=== PATIENT | female | born 1945 | race Caucasian/White ===

== ENCOUNTER 2019-04-29 18:10 | Emergency (ER) | payer MEDICARE, OTHER ==
[~2019-04-29] VITALS: Ht 167.6 cm; Wt 97.2 kg
[~2019-04-29 18:10] MED LIST: ACYC200C PO; ALBU18HF2 IH; ALPR1TAB2 PO; ASPI-611 PO; BACL10TA PO; FURO20TA4 PO; GEMF600T89 PO; GLIP5TAB13 PO; HYDR-4383 PO; LEVO150T8 PO; LOSA50TA64 PO; LYR75C PO; MEDR2.5T PO; METF-316 PO; NITR0.3T SL; NPH,100V SQ; PANT40TA4 PO; POTA8TAB8 PO; VENL37.55 PO
[2019-04-29 18:30] VITALS: BP 139/84
[2019-04-29] MEDS ORDERED: dexamethasone 4mg tablet PO ONE (19:15)
[2019-04-29] MEDS ORDERED: diphenhydrAMINE 25mg capsule PO ONE (19:15)
[2019-04-29] MEDS ORDERED: famotidine 20mg tablet PO ONE (19:15)
[2019-04-29] MEDS ORDERED: DIPH25CA83 PO (19:17)
[2019-04-29] MEDS ORDERED: TRIA15CR61 TOP (19:17)
[2019-04-29] MEDS ORDERED: FAMO-128 PO (19:17)
== END 2019-04-29 19:29 | disposition home or self-care (01) ==
LOC: ER 18:11
DX: L23.7 Allergic contact dermatitis due to plants, except food (principal); E11.9 Type 2 diabetes mellitus without complications; H57.89 Other specified disorders of eye and adnexa; I25.10 Atherosclerotic heart disease of native coronary artery without angina pectoris; E78.00 Pure hypercholesterolemia, unspecified; I10 Essential (primary) hypertension; I25.2 Old myocardial infarction; Z88.1 Allergy status to other antibiotic agents; Z88.8 Allergy status to other drugs, medicaments and biological substances; Z79.899 Other long term (current) drug therapy; Z79.82 Long term (current) use of aspirin; Z95.5 Presence of coronary angioplasty implant and graft
CPT/HCPCS: 99284; J8540; Q0163

== ENCOUNTER 2019-12-17 17:45 | Emergency (ER) | payer MEDICARE, OTHER ==
[~2019-12-17] VITALS: Ht 167.6 cm; Wt 360.0 kg
[~2019-12-17 17:45] MED LIST changes: +DIPH25CA83 PO; +FAMO-128 PO
--- NOTE | 2019-12-17 18:20 | NUR ---
relieving RN for break, pt to xray
[2019-12-17] MEDS ORDERED: HYDR-3965 PO (19:03)
[2019-12-17 19:41] VITALS: BP 128/48
== END 2019-12-17 19:41 | disposition home or self-care (01) ==
LOC: ER 17:46
DX: M25.551 Pain in right hip (principal); M25.562 Pain in left knee; M79.662 Pain in left lower leg; I25.10 Atherosclerotic heart disease of native coronary artery without angina pectoris; E78.00 Pure hypercholesterolemia, unspecified; I10 Essential (primary) hypertension; I25.2 Old myocardial infarction; E11.9 Type 2 diabetes mellitus without complications; Z98.890 Other specified postprocedural states; Z60.2 Problems related to living alone; Z88.1 Allergy status to other antibiotic agents; Z88.6 Allergy status to analgesic agent; Z79.82 Long term (current) use of aspirin; Z79.899 Other long term (current) drug therapy; W19.XXXA Unspecified fall, initial encounter; Y93.89 Activity, other specified; Y92.096 Garden or yard of other non-institutional residence as the place of occurrence of the external cause
CPT/HCPCS: 72100; 73502; 73552; 73590; 99284

== ENCOUNTER 2021-07-13 15:01 | Emergency (ER) | payer MEDICARE, OTHER ==
[~2021-07-13] VITALS: Ht 170.2 cm; Wt 118.0 kg
[~2021-07-13 15:01] MED LIST changes: -ACYC200C PO; -PANT40TA4 PO; +PANT40TA54 PO; +ZOV200C PO
[2021-07-13 15:49] LABS: BASOPHILS % (AUTO) 0.3 % (0-1); EOSINOPHILS # (AUTO) 0.2 X10'3 (0-0.9); EOSINOPHILS % (AUTO) 2.4 % (0-6); HEMATOCRIT 35.5 % (35.0-45.0); HEMOGLOBIN 11.2 g/dl (12.0-16.0); LYMPHOCYTES # (AUTO) 0.8 X10'3 (1.1-4.8); LYMPHOCYTES % (AUTO) 8.7 % (21-51); MEAN CORPUSCULAR HEMOGLOBIN 22.9 PG (27.0-31.0); MEAN CORPUSCULAR HGB CONC 31.5 g/dL (33.0-36.5); MEAN CORPUSCULAR VOLUME 72.7 FL (78-98); MEAN PLATELET VOLUME 7.2 FL (7.4-10.4); MONOCYTES # (AUTO) 0.6 X10'3 (0-0.9); MONOCYTES % (AUTO) 7.2 % (2-12); NEUTROPHILS # (AUTO) 7.2 X10'3 (1.8-7.7); NEUTROPHILS % (AUTO) 81.4 % (42-75); PLATELET COUNT 356 X10'3 (140-440); RED BLOOD COUNT 4.89 X10'6 (4.20-5.60); RED CELL DISTRIBUTION WIDTH 20.2 % (11.5-14.5); WHITE BLOOD COUNT 8.8 X10'3 (4.5-11.0)
[2021-07-13 16:06] LABS: ALANINE AMINOTRANSFERASE 24 U/L (12-78); ALBUMIN 3.2 G/DL (3.4-5.0); ALBUMIN/GLOBULIN RATIO 0.9 (1.1-1.5); ALKALINE PHOSPHATASE 105 IU/L (46-116); ANION GAP 8 (8-16); ASPARTATE AMINO TRANSFERASE 12 U/L (10-37); BILIRUBIN,TOTAL 0.5 MG/DL (0.1-1.0); BLOOD UREA NITROGEN 17 MG/DL (7-18); BUN/CREATININE RATIO 17.7 (6.6-38.0); CALCIUM 8.6 MG/DL (8.5-10.1); CHLORIDE 105 MMOL/L (99-107); CREATININE 0.96 MG/DL (0.40-0.90); GLUCOSE 222 MG/DL (70-104); POTASSIUM 3.9 MMOL/L (3.5-5.1); SODIUM 142 MMOL/L (135-145); TOTAL CARBON DIOXIDE 29.5 MMOL/L (24-32); TOTAL PROTEIN 6.9 G/DL (6.4-8.2); eGFR 57 ML/MIN
[2021-07-13 16:12] LABS: MICROCYTOSIS 1+; PLATELET ESTIMATE NORMAL
[2021-07-13 16:13] LABS: ANISOCYTOSIS 3+; ELLIPTOCYTES 1+
[2021-07-13 16:14] LABS: POLYCHROMASIA FEW
[2021-07-13 16:15] LABS: BURR CELLS FEW; HYPOCHROMASIA 1+
[2021-07-13 17:09] VITALS: BP 111/85
[2021-07-13 17:51] LABS: D-DIMER 0.91 MG/L FEU (0-0.50)
[2021-07-13] MEDS ORDERED: iohexol 350MG/ML 100ml bottle IV ONE (18:03)
[2021-07-13] MEDS ORDERED: LISI10TA27 PO (18:53)
== END 2021-07-13 19:22 | disposition home or self-care (01) ==
LOC: ER 15:02
DX: R06.02 Shortness of breath (principal); R09.89 Other specified symptoms and signs involving the circulatory and respiratory systems; I25.10 Atherosclerotic heart disease of native coronary artery without angina pectoris; E78.00 Pure hypercholesterolemia, unspecified; I10 Essential (primary) hypertension; I25.2 Old myocardial infarction; J44.9 Chronic obstructive pulmonary disease, unspecified; E11.9 Type 2 diabetes mellitus without complications; Z98.890 Other specified postprocedural states; Z60.2 Problems related to living alone; Z79.2 Long term (current) use of antibiotics; Z79.82 Long term (current) use of aspirin; Z79.899 Other long term (current) drug therapy
CPT/HCPCS: 36415; 71045; 71275; 80053; 82948; 83880; 84484; 85008; 85025; 85379; 93005; 99285; Q9967

== ENCOUNTER 2021-10-18 07:16 | Inpatient (IN) | payer MEDICARE, OTHER ==
[~2021-10-18] VITALS: Ht 172.7 cm; Wt 114.2 kg
[~2021-10-18 07:16] MED LIST changes: +LISI10TA27 PO
[2021-10-18] MEDS ORDERED: furosemide 40mg/4ml inj IV ONE (08:50)
[2021-10-18 09:15] LABS: BASOPHILS % (AUTO) 0.5 % (0-1); EOSINOPHILS # (AUTO) 0.1 X10'3 (0-0.9); EOSINOPHILS % (AUTO) 1.3 % (0-6); LYMPHOCYTES # (AUTO) 0.7 X10'3 (1.1-4.8); LYMPHOCYTES % (AUTO) 8.5 % (21-51); MEAN PLATELET VOLUME 7.3 FL (7.4-10.4); MONOCYTES % (AUTO) 11.7 % (2-12); NEUTROPHILS # (AUTO) 6.5 X10'3 (1.8-7.7); PLATELET COUNT 335 X10'3 (140-440); RED CELL DISTRIBUTION WIDTH 20.5 % (11.5-14.5); WHITE BLOOD COUNT 8.4 X10'3 (4.5-11.0)
[2021-10-18 09:19] LABS: ALANINE AMINOTRANSFERASE 17 U/L (12-78); ALBUMIN 3.2 G/DL (3.4-5.0); ALBUMIN/GLOBULIN RATIO 0.9 (1.1-1.5); ALKALINE PHOSPHATASE 83 IU/L (46-116); ANION GAP 3 (8-16); ASPARTATE AMINO TRANSFERASE 15 U/L (10-37); BILIRUBIN,TOTAL 0.6 MG/DL (0.1-1.0); BLOOD UREA NITROGEN 19 MG/DL (7-18); BUN/CREATININE RATIO 19.4 (6.6-38.0); CHLORIDE 101 MMOL/L (99-107); CREATININE 0.98 MG/DL (0.40-0.90); GLUCOSE 94 MG/DL (70-104); POTASSIUM 4.2 MMOL/L (3.5-5.1); SODIUM 142 MMOL/L (135-145); TOTAL CARBON DIOXIDE 38.4 MMOL/L (24-32); TOTAL PROTEIN 6.9 G/DL (6.4-8.2); eGFR 56 ML/MIN
[2021-10-18 09:27] LABS: MAGNESIUM 2.2 MG/DL (1.5-2.4)
[2021-10-18 09:51] LABS: HEMATOCRIT 36.7 % (35.0-45.0); HEMOGLOBIN 11.7 g/dl (12.0-16.0); RED BLOOD COUNT 5.49 X10'6 (4.20-5.60)
[2021-10-18 09:52] LABS: MEAN CORPUSCULAR HEMOGLOBIN 21.2 PG (27.0-31.0); MEAN CORPUSCULAR HGB CONC 31.8 g/dL (33.0-36.5); MEAN CORPUSCULAR VOLUME 66.8 FL (78-98)
[2021-10-18] MEDS ORDERED: magnesium Cl slow-release 64mg tablet PO PRN (11:15)
[2021-10-18] MEDS ORDERED: metoclopramide 5 mg/ml inj IV PRN (11:15)
[2021-10-18] MEDS ORDERED: magnesium 4gm in 100ml NS 100 ML IV PRN (11:15)
[2021-10-18] MEDS ORDERED: ondansetron 4mg rapidly disintigrating tab PO PRN (11:15)
[2021-10-18] MEDS ORDERED: HYDROcodone/acetaminophen 5mg/325mg tablet PO PRN (11:15)
[2021-10-18] MEDS ORDERED: potassium Cl 20 mEq SR tablet PO PRN ×2 (11:15)
[2021-10-18] MEDS ORDERED: acetaminophen 325mg tablet PO PRN (11:15)
[2021-10-18] MEDS ORDERED: acetaminophen 650mg rectal suppository RC PRN (11:15)
[2021-10-18] MEDS ORDERED: potassium CL 10mEq/100ml bag 100 ML IV PRN (11:15)
[2021-10-18] MEDS ORDERED: magnesium hydroxide 30ml (MOM) UD suspension PO PRN (11:15)
[2021-10-18] MEDS ORDERED: bisacodyl 10mg suppository rectal RC PRN (11:15)
[2021-10-18] MEDS ORDERED: ondansetron/PF 4mg/2ml inj IV PRN (11:15)
[2021-10-18] MEDS ORDERED: ipratropium/albuterol 3ml nebule NEB PRN (11:15)
[2021-10-18] MEDS ORDERED: magnesium 2GM in 50ml NS 50 ML IV PRN (11:15)
[2021-10-18] MEDS ORDERED: mag hydrox/Alum hydrox/simeth 30ml oral suspension PO PRN (11:15)
[2021-10-18] MEDS ORDERED: PERFLUTREN PROTEIN-A MICROSPHR (Optison) 0.22 MG/ML 3ML VIAL IV ONE (11:15)
[2021-10-18 11:36] LABS: ANISOCYTOSIS 3+; MICROCYTOSIS 2+; PLATELET ESTIMATE NORMAL
[2021-10-18 11:41] LABS: ELLIPTOCYTES FEW; HYPOCHROMASIA 2+
--- NOTE | 2021-10-18 13:03 | NUR ---
DR PETERSON AT BEDSIDE.
[2021-10-18 13:21] LABS: CLARITY,URINE CLEAR (Clear); COLOR,URINE YELLOW (Yellow); GLUCOSE, URINE 100 mg/dl (Neg); KETONES,URINE TRACE mg/dl (Neg); LEUKOCYTE ESTERASE ,URINE NEGATIVE (Neg); NITRITES, URINE NEGATIVE (Neg); OCCULT BLOOD,URINE NEGATIVE (Neg); PROTEIN,URINE TRACE mg/dl (Neg)
[2021-10-18 13:22] LABS: UA COLLECTION TYPE CLN CATCH MIDSTREAM
[2021-10-18] MEDS ORDERED: dextrose 50%-water 50ml dispensing syringe IV ONE (13:24)
[2021-10-18 13:26] LABS: MUCUS STRANDS MANY /LPF (Neg)
[2021-10-18 13:27] LABS: SQUAMOUS EPITHELIAL CELL,UR FEW /LPF (FEW)
--- NOTE | 2021-10-18 13:27 | NUR ---
PT BLD SUGAR WAS 18 AND 21 PER MARCIA CHAVARRIA .PT C/O DIAPHORISIS AND FEELING WEAK AND TIRED ,MARCIA CHAVARRIA CHECKED THE B.S ,DR PETERSON CAME AT BEDSIDE ORDER TO GIVE 50 %DEXTROSE FOR LOW BP AND ALSO INSTRUCTED TO FEED THE PATIENT .DEXTROSE 50 %ADMIN AND TRAY PROVIDED ,PT AOX4 EATING HER FOOD.
[2021-10-18 13:30] LABS: HYALINE CASTS 0-3 /LPF (NEGATIVE)
[2021-10-18 13:34] LABS: TRANSITIONAL EPI CELLS,URINE MODERATE /HPF
[2021-10-18 13:35] LABS: RBC,URINE 0-2 /HPF (0-2)
[2021-10-18 13:40] LABS: BACTERIA,URINE FEW /HPF (Neg); WBC,URINE 0-4 /HPF (0-4)
[2021-10-18] MEDS ORDERED: LEVO175C2 PO (13:44)
[2021-10-18] MEDS ORDERED: POTA8CAP20 PO (13:44)
[2021-10-18] MEDS ORDERED: NAPR-56 PO (13:44)
[2021-10-18] MEDS ORDERED: ATOR40TA PO (13:44)
[2021-10-18] MEDS ORDERED: VENL37.55 PO (13:44)
--- NOTE | 2021-10-18 15:32 | NUR ---
pet technologist at bedside.
[2021-10-18 16:39] VITALS: BP 148/95
--- NOTE | 2021-10-18 17:00 | NUR ---
IR HAS TAKEN 1200 ML OF PLEURAL FLUID OUT FROM RGT LUNG.
[2021-10-18] MEDS: docusate sod 100mg capsule PO SCH (20:00)
[2021-10-18] MEDS: K and/or MAG REPLACEMENT MC SCH (20:00)
[2021-10-18] MEDS: furosemide 40mg/4ml inj IV SCH (20:31)
[2021-10-18] MEDS ORDERED: temazepam 15mg capsule PO PRN (21:00)
--- NOTE | 2021-10-19 01:15 | NUR ---
Patient in room PCU 3013. I have received report from Urban CHAVARRIA and had the opportunity to ask questions and assume patient care.
[2021-10-19 01:34] LABS: BASOPHILS % (AUTO) 0.4 % (0-1); EOSINOPHILS # (AUTO) 0.2 X10'3 (0-0.9); EOSINOPHILS % (AUTO) 2.3 % (0-6); LYMPHOCYTES # (AUTO) 0.8 X10'3 (1.1-4.8); LYMPHOCYTES % (AUTO) 8.5 % (21-51); MEAN PLATELET VOLUME 7.3 FL (7.4-10.4); MONOCYTES % (AUTO) 11.3 % (2-12); NEUTROPHILS # (AUTO) 7.1 X10'3 (1.8-7.7); NEUTROPHILS % (AUTO) 77.5 % (42-75); PLATELET COUNT 335 X10'3 (140-440); WHITE BLOOD COUNT 9.2 X10'3 (4.5-11.0)
[2021-10-19 01:42] LABS: ALANINE AMINOTRANSFERASE 15 U/L (12-78); ALBUMIN/GLOBULIN RATIO 0.8 (1.1-1.5); ALKALINE PHOSPHATASE 80 IU/L (46-116); ANION GAP 3 (8-16); ASPARTATE AMINO TRANSFERASE 21 U/L (10-37); BILIRUBIN,TOTAL 0.5 MG/DL (0.1-1.0); BLOOD UREA NITROGEN 19 MG/DL (7-18); BUN/CREATININE RATIO 17.9 (6.6-38.0); CALCIUM 8.9 MG/DL (8.5-10.1); CHLORIDE 100 MMOL/L (99-107); CHOL/HDL RATIO 2.6 (0.00-4.99); CHOLESTEROL 107 MG/DL (0-200); CREATININE 1.06 MG/DL (0.40-0.90); GLUCOSE 143 MG/DL (70-104); HDL CHOLESTEROL 41 MG/DL (35-60); LDL CHOLESTEROL 53 MG/DL (50-100); MAGNESIUM 2.2 MG/DL (1.5-2.4); POTASSIUM 4.3 MMOL/L (3.5-5.1); SODIUM 142 MMOL/L (135-145); TOTAL CARBON DIOXIDE 39.5 MMOL/L (24-32); TOTAL PROTEIN 6.6 G/DL (6.4-8.2); TRIGLYCERIDES 57 MG/DL (20-135); eGFR 51 ML/MIN
[2021-10-19 02:00] VITALS: BP 115/55
[2021-10-19 02:25] LABS: HEMATOCRIT 33.3 % (35.0-45.0); HEMOGLOBIN 10.6 g/dl (12.0-16.0); MEAN CORPUSCULAR HEMOGLOBIN 21.3 PG (27.0-31.0); MEAN CORPUSCULAR HGB CONC 31.9 g/dL (33.0-36.5); MEAN CORPUSCULAR VOLUME 66.8 FL (78-98); RED BLOOD COUNT 4.99 X10'6 (4.20-5.60)
[2021-10-19 02:55] LABS: ANISOCYTOSIS 3+; MICROCYTOSIS 2+; PLATELET ESTIMATE NORMAL; POLYCHROMASIA FEW
[2021-10-19 02:56] LABS: HYPOCHROMASIA 1+
[2021-10-19 02:58] LABS: ELLIPTOCYTES 1+
[2021-10-19] MEDS: HYDROcodone/acetaminophen 10/325mg tab PO PRN (04:09)
[2021-10-19 06:00] VITALS: BP 121/67
--- NOTE | 2021-10-19 06:29 | NUR ---
Patient in room PCU 3013. I have received report from Narcisa CHAVARRIA and had the opportunity to ask questions and assume patient care.
[2021-10-19] MEDS: K and/or MAG REPLACEMENT MC SCH (08:00)
[2021-10-19] MEDS: pantoprazole 40mg Tablet.DR PO SCH (08:26)
[2021-10-19] MEDS: atorvastatin 20mg tablet PO SCH (08:26)
[2021-10-19] MEDS: lisinopril 10 MG tablet PO SCH (08:27)
[2021-10-19] MEDS: potassium chloride 8mEq ER tablet PO SCH (08:27)
[2021-10-19] MEDS: furosemide 40mg/4ml inj IV SCH ×2 (08:28→19:49)
[2021-10-19] MEDS: levoTHYROXINE 175mcg tablet PO SCH (08:28)
[2021-10-19] MEDS: venlafaxine XR 37.5mg cap (Q24H) PO SCH (08:28)
[2021-10-19] MEDS: docusate sod 100mg capsule PO SCH ×2 (08:29→19:52)
[2021-10-19] MEDS: enoxaparin 40mg/0.4ml syringe SUBCUT SCH (08:34)
[2021-10-19] MEDS ORDERED: dextrose ORAL solution 15 GM/59 ML bottle PO PRN ×4 (10:15→11:00)
[2021-10-19] MEDS ORDERED: dextrose 50%-water 50ml dispensing syringe IV PRN ×3 (10:15→11:00)
[2021-10-19] MEDS ORDERED: MESSAGE TO PHARMACY PO ONE ×2 (10:15→11:00)
[2021-10-19] MEDS ORDERED: glucagon, human recombinant 1mg kit SUBCUT PRN ×2 (10:15→11:00)
[2021-10-19 11:00] VITALS: BP 137/75
[2021-10-19] MEDS ORDERED: insulin Lispro (HumaLOG) vial - multi-dose SQ SCH (11:00)
[2021-10-19] MEDS: insulin Lispro (HumaLOG) vial - multi-dose SQ SCH ×2 (13:09→19:46)
--- NOTE | 2021-10-19 13:35 | NUR ---
Noted pt with h/o DM, current A1c is 9.0% which is relatively stable from A1c hx per EMR. Pt seen at bedside on second attempt, only able to provide written DM education as pt had to discontinue visit d/t needing to have a BM. [facility] contact information provided and pt encouraged to reach out for questions. Will remain available. Addendum: 10/19/21 at [address] Amended: Links added.
[2021-10-19 15:00] VITALS: BP 112/53
[2021-10-19] MEDS: acetaminophen 325mg tablet PO PRN (16:35)
[2021-10-19 18:00] VITALS: BP 143/87
--- NOTE | 2021-10-19 18:36 | NUR ---
Problems reprioritized. Patient report given to Oraila CHAVARRIA, questions answered & plan of care reviewed with Oralia CHAVARRIA.
--- NOTE | 2021-10-19 18:56 | NUR ---
Patient in room PCU 3013. I have received report from Awilda CHAVARRIA and had the opportunity to ask questions and assume patient care.
[2021-10-19] MEDS: guaiFENesin ER 600mg tablet PO SCH (19:51)
[2021-10-19] MEDS: calcium polycarbophil 625mg tablet PO SCH (19:51)
[2021-10-19] MEDS ORDERED: insulin glargine (Lantus) pen - multi-dose SQ SCH (21:00)
[2021-10-19 22:00] VITALS: BP 138/77
[2021-10-19] MEDS: insulin glargine (Lantus) pen - multi-dose SQ SCH (22:08)
[2021-10-19] MEDS: ALPRAZolam 0.5mg tablet PO PRN (22:13)
[2021-10-20 02:00] VITALS: BP 147/85
[2021-10-20 06:00] VITALS: BP 129/79
--- NOTE | 2021-10-20 06:08 | NUR ---
Problems reprioritized. Patient report given, questions answered & plan of care reviewed with Awilda CHAVARRIA.
--- NOTE | 2021-10-20 06:22 | NUR ---
Patient in room PCU 3008. I have received report from Oralia CHAVARRIA and had the opportunity to ask questions and assume patient care.
[2021-10-20] MEDS: docusate sod 100mg capsule PO SCH ×2 (06:26→21:39)
[2021-10-20] MEDS: levoTHYROXINE 175mcg tablet PO SCH (07:03)
[2021-10-20] MEDS: salt irrigation nasal spray 45 ML SPRAY NS PRN ×2 (07:03→21:38)
[2021-10-20] MEDS: venlafaxine XR 37.5mg cap (Q24H) PO SCH (07:05)
[2021-10-20] MEDS: lisinopril 10 MG tablet PO SCH (07:05)
[2021-10-20] MEDS: calcium polycarbophil 625mg tablet PO SCH ×2 (07:06→21:36)
[2021-10-20] MEDS: atorvastatin 20mg tablet PO SCH (07:06)
[2021-10-20] MEDS: pantoprazole 40mg Tablet.DR PO SCH (07:06)
[2021-10-20] MEDS: guaiFENesin ER 600mg tablet PO SCH ×2 (07:06→21:37)
[2021-10-20] MEDS: potassium chloride 8mEq ER tablet PO SCH (07:07)
[2021-10-20] MEDS: furosemide 40mg/4ml inj IV SCH ×2 (07:07→21:44)
[2021-10-20] MEDS: enoxaparin 40mg/0.4ml syringe SUBCUT SCH (07:07)
[2021-10-20] MEDS: acetaminophen 325mg tablet PO PRN (07:11)
[2021-10-20] MEDS: K and/or MAG REPLACEMENT MC SCH ×2 (08:00→20:00)
[2021-10-20 08:24] LABS: BASOPHILS % (AUTO) 0.4 % (0-1); EOSINOPHILS # (AUTO) 0.3 X10'3 (0-0.9); EOSINOPHILS % (AUTO) 3.7 % (0-6); LYMPHOCYTES # (AUTO) 0.8 X10'3 (1.1-4.8); LYMPHOCYTES % (AUTO) 10.9 % (21-51); MEAN PLATELET VOLUME 7.4 FL (7.4-10.4); MONOCYTES # (AUTO) 0.8 X10'3 (0-0.9); MONOCYTES % (AUTO) 11.7 % (2-12); NEUTROPHILS # (AUTO) 5.1 X10'3 (1.8-7.7); NEUTROPHILS % (AUTO) 73.3 % (42-75); PLATELET COUNT 321 X10'3 (140-440); WHITE BLOOD COUNT 6.9 X10'3 (4.5-11.0)
[2021-10-20 08:28] LABS: ALANINE AMINOTRANSFERASE 11 U/L (12-78); ALBUMIN 2.8 G/DL (3.4-5.0); ALBUMIN/GLOBULIN RATIO 0.8 (1.1-1.5); ALKALINE PHOSPHATASE 69 IU/L (46-116); ANION GAP 3 (8-16); ASPARTATE AMINO TRANSFERASE 20 U/L (10-37); BILIRUBIN,TOTAL 0.8 MG/DL (0.1-1.0); BLOOD UREA NITROGEN 16 MG/DL (7-18); BUN/CREATININE RATIO 16.7 (6.6-38.0); CALCIUM 8.6 MG/DL (8.5-10.1); CHLORIDE 100 MMOL/L (99-107); CREATININE 0.96 MG/DL (0.40-0.90); GLUCOSE 163 MG/DL (70-104); PHOSPHORUS 4.8 MG/DL (2.3-4.5); POTASSIUM 3.5 MMOL/L (3.5-5.1); SODIUM 142 MMOL/L (135-145); TOTAL CARBON DIOXIDE 39.2 MMOL/L (24-32); TOTAL PROTEIN 6.2 G/DL (6.4-8.2); eGFR 57 ML/MIN
[2021-10-20 08:43] LABS: HEMATOCRIT 35.5 % (35.0-45.0); HEMOGLOBIN 11.1 g/dl (12.0-16.0); MEAN CORPUSCULAR HEMOGLOBIN 20.9 PG (27.0-31.0); MEAN CORPUSCULAR HGB CONC 31.2 g/dL (33.0-36.5); MEAN CORPUSCULAR VOLUME 66.8 FL (78-98); RED BLOOD COUNT 5.31 X10'6 (4.20-5.60); RED CELL DISTRIBUTION WIDTH 20.1 % (11.5-14.5)
[2021-10-20 08:49] LABS: % IRON SATURATION 7 % (11-46); IRON 29 UG/DL (49-151); TOTAL IRON BINDING CAPACITY 390 UG/DL (259-388)
[2021-10-20 11:00] VITALS: BP 117/68
[2021-10-20] MEDS: insulin Lispro (HumaLOG) vial - multi-dose SQ SCH ×2 (13:19→19:25)
[2021-10-20] MEDS ORDERED: levoFLOXACIN 500mg tablet PO ONE (14:25)
[2021-10-20 15:00] VITALS: BP 124/73
--- NOTE | 2021-10-20 16:19 | NUR ---
Wound Care Wound care done. Per doctor Delmyo, no need to order topical antibiotic. Awilda Click PCU
[2021-10-20 18:00] VITALS: BP 92/59
--- NOTE | 2021-10-20 18:32 | NUR ---
Problems reprioritized. Patient report given to Marty RN, questions answered & plan of care reviewed with Marty RN.
--- NOTE | 2021-10-20 18:35 | NUR ---
Patient in room PCU 3013. I have received report from ATILIO CHAVARRIA and had the opportunity to ask questions and assume patient care.
[2021-10-20] MEDS: ALPRAZolam 0.5mg tablet PO PRN (21:37)
[2021-10-20] MEDS: insulin glargine (Lantus) pen - multi-dose SQ SCH (21:49)
[2021-10-20 22:00] VITALS: BP 137/73
[2021-10-21 02:00] VITALS: BP 121/70
--- NOTE | 2021-10-21 06:23 | NUR ---
Problems reprioritized. Patient report given, questions answered & plan of care reviewed with HILTON CHAVARRIA.
--- NOTE | 2021-10-21 06:57 | NUR ---
Patient in room PCU 3013. I have received report from Stefani CHAVARRIA and had the opportunity to ask questions and assume patient care.
[2021-10-21 07:00] VITALS: BP 131/76
[2021-10-21 07:07] LABS: BASOPHILS # (AUTO) 0.1 X10'3 (0-0.2); BASOPHILS % (AUTO) 0.9 % (0-1); EOSINOPHILS # (AUTO) 0.3 X10'3 (0-0.9); EOSINOPHILS % (AUTO) 4.1 % (0-6); HEMOGLOBIN 10.7 g/dl (12.0-16.0); LYMPHOCYTES # (AUTO) 0.9 X10'3 (1.1-4.8); LYMPHOCYTES % (AUTO) 12.2 % (21-51); MEAN PLATELET VOLUME 7.3 FL (7.4-10.4); MONOCYTES # (AUTO) 0.9 X10'3 (0-0.9); MONOCYTES % (AUTO) 12.9 % (2-12); NEUTROPHILS % (AUTO) 69.9 % (42-75); PLATELET COUNT 299 X10'3 (140-440); WHITE BLOOD COUNT 7.1 X10'3 (4.5-11.0)
[2021-10-21 07:21] LABS: ALANINE AMINOTRANSFERASE 7 U/L (12-78); ALBUMIN 2.6 G/DL (3.4-5.0); ALBUMIN/GLOBULIN RATIO 0.8 (1.1-1.5); ALKALINE PHOSPHATASE 63 IU/L (46-116); ANION GAP 1 (8-16); ASPARTATE AMINO TRANSFERASE 14 U/L (10-37); BILIRUBIN,TOTAL 0.6 MG/DL (0.1-1.0); BLOOD UREA NITROGEN 18 MG/DL (7-18); BUN/CREATININE RATIO 17.5 (6.6-38.0); CALCIUM 8.6 MG/DL (8.5-10.1); CHLORIDE 102 MMOL/L (99-107); CREATININE 1.03 MG/DL (0.40-0.90); GLUCOSE 155 MG/DL (70-104); MAGNESIUM 2.1 MG/DL (1.5-2.4); PHOSPHORUS 4.4 MG/DL (2.3-4.5); POTASSIUM 3.6 MMOL/L (3.5-5.1); SODIUM 142 MMOL/L (135-145); TOTAL CARBON DIOXIDE 39.5 MMOL/L (24-32); eGFR 53 ML/MIN
[2021-10-21] MEDS: K and/or MAG REPLACEMENT MC SCH ×2 (08:00→20:00)
[2021-10-21 08:01] LABS: HEMATOCRIT 34.7 % (35.0-45.0); RED BLOOD COUNT 5.13 X10'6 (4.20-5.60)
[2021-10-21 08:02] LABS: MEAN CORPUSCULAR HEMOGLOBIN 20.9 PG (27.0-31.0); MEAN CORPUSCULAR HGB CONC 30.8 g/dL (33.0-36.5); MEAN CORPUSCULAR VOLUME 67.8 FL (78-98)
[2021-10-21] MEDS: enoxaparin 40mg/0.4ml syringe SUBCUT SCH (08:21)
[2021-10-21] MEDS: calcium polycarbophil 625mg tablet PO SCH ×2 (08:21→20:01)
[2021-10-21] MEDS: pantoprazole 40mg Tablet.DR PO SCH (08:21)
[2021-10-21] MEDS: levoTHYROXINE 175mcg tablet PO SCH (08:21)
[2021-10-21] MEDS: potassium chloride 8mEq ER tablet PO SCH (08:22)
[2021-10-21] MEDS: docusate sod 100mg capsule PO SCH ×2 (08:22→20:01)
[2021-10-21] MEDS: lisinopril 10 MG tablet PO SCH (08:22)
[2021-10-21] MEDS: atorvastatin 20mg tablet PO SCH (08:22)
[2021-10-21] MEDS: venlafaxine XR 37.5mg cap (Q24H) PO SCH (08:23)
[2021-10-21] MEDS: guaiFENesin ER 600mg tablet PO SCH ×2 (08:23→20:01)
[2021-10-21] MEDS: ferrous sulfate 325mg tablet PO SCH ×3 (08:23→17:27)
[2021-10-21] MEDS: furosemide 40mg/4ml inj IV SCH ×2 (08:23→19:43)
[2021-10-21] MEDS: insulin Lispro (HumaLOG) vial - multi-dose SQ SCH ×3 (08:36→20:10)
[2021-10-21 09:25] LABS: ANISOCYTOSIS 2+; HYPOCHROMASIA 2+; MICROCYTOSIS 2+; PLATELET ESTIMATE NORMAL
[2021-10-21 09:26] LABS: ELLIPTOCYTES 1+
[2021-10-21 09:27] LABS: SCHISTOCYTES FEW
[2021-10-21 11:00] VITALS: BP 115/65
[2021-10-21] MEDS: salt irrigation nasal spray 45 ML SPRAY NS PRN ×3 (11:02→20:01)
[2021-10-21] MEDS: levoFLOXACIN 500mg tablet PO SCH (11:02)
[2021-10-21] MEDS: acetaminophen 325mg tablet PO PRN ×2 (12:14→23:25)
[2021-10-21 15:00] VITALS: BP 122/79
[2021-10-21 15:40] LABS: ABG BASE EXCESS 13.4 mmol/L (-2.0-2.0); ABG HCO3 39.1 mmol/L (22.0-26.0); ABG OXYGEN SATURATION 90.6 % (94-97); ABG PCO2 (T) 54.9 mmHg (32.0-45.0); ABG PO2 (T) 57.8 mmHg (75.0-100.0); ALLEN'S TEST POSITIVE; FLOW 6 L/min; FMetHb 0.3 % (0.0-1.5); FO2Hb 89.4 % (94-97); TOTAL HEMOGLOBIN 11.7 G/dl (12.0-16.0)
[2021-10-21 18:00] VITALS: BP 159/94
--- NOTE | 2021-10-21 18:23 | NUR ---
Problems reprioritized. Patient report given, questions answered & plan of care reviewed with Stefani CHAVARRIA.
--- NOTE | 2021-10-21 18:35 | NUR ---
Patient in room PCU 3013. I have received report from BRENNAN CHAVARRIA and had the opportunity to ask questions and assume patient care.
[2021-10-21] MEDS: lactobacillus rhamnosus 10,000 MMU CELLS/CAPSULE PO SCH (20:01)
[2021-10-21 22:00] VITALS: BP 128/77
[2021-10-21] MEDS: ALPRAZolam 0.5mg tablet PO PRN (22:35)
[2021-10-21] MEDS: insulin glargine (Lantus) pen - multi-dose SQ SCH (22:38)
[2021-10-22 02:00] VITALS: BP 141/80
[2021-10-22 06:00] VITALS: BP 109/53
--- NOTE | 2021-10-22 06:16 | NUR ---
Problems reprioritized. Patient report given, questions answered & plan of care reviewed with BRENNAN CHAVARRIA.
--- NOTE | 2021-10-22 06:35 | NUR ---
Patient in room PCU 3013. I have received report from Stefani CHAVARRIA and had the opportunity to ask questions and assume patient care.
[2021-10-22 07:04] LABS: BASOPHILS % (AUTO) 0.3 % (0-1); EOSINOPHILS # (AUTO) 0.3 X10'3 (0-0.9); EOSINOPHILS % (AUTO) 4.3 % (0-6); LYMPHOCYTES # (AUTO) 0.8 X10'3 (1.1-4.8); LYMPHOCYTES % (AUTO) 10.5 % (21-51); MEAN PLATELET VOLUME 7.4 FL (7.4-10.4); MONOCYTES # (AUTO) 0.9 X10'3 (0-0.9); NEUTROPHILS # (AUTO) 5.2 X10'3 (1.8-7.7); NEUTROPHILS % (AUTO) 71.9 % (42-75); PLATELET COUNT 290 X10'3 (140-440); WHITE BLOOD COUNT 7.3 X10'3 (4.5-11.0)
[2021-10-22 07:24] LABS: ALANINE AMINOTRANSFERASE 7 U/L (12-78); ALBUMIN 2.6 G/DL (3.4-5.0); ALBUMIN/GLOBULIN RATIO 0.8 (1.1-1.5); ALKALINE PHOSPHATASE 61 IU/L (46-116); ANION GAP 2 (8-16); ASPARTATE AMINO TRANSFERASE 16 U/L (10-37); BILIRUBIN,TOTAL 0.5 MG/DL (0.1-1.0); BLOOD UREA NITROGEN 18 MG/DL (7-18); BUN/CREATININE RATIO 16.4 (6.6-38.0); CALCIUM 8.5 MG/DL (8.5-10.1); CHLORIDE 102 MMOL/L (99-107); GLUCOSE 111 MG/DL (70-104); MAGNESIUM 2.1 MG/DL (1.5-2.4); PHOSPHORUS 4.9 MG/DL (2.3-4.5); POTASSIUM 3.4 MMOL/L (3.5-5.1); SODIUM 143 MMOL/L (135-145); TOTAL CARBON DIOXIDE 38.7 MMOL/L (24-32); eGFR 49 ML/MIN
[2021-10-22 07:53] LABS: HEMOGLOBIN 10.6 g/dl (12.0-16.0); MEAN CORPUSCULAR HEMOGLOBIN 31.2 PG (27.0-31.0); MEAN CORPUSCULAR HGB CONC 31.2 g/dL (33.0-36.5); MEAN CORPUSCULAR VOLUME 67.9 FL (78-98); RED BLOOD COUNT 5.01 X10'6 (4.20-5.60); RED CELL DISTRIBUTION WIDTH 20.1 % (11.5-14.5)
[2021-10-22] MEDS: K and/or MAG REPLACEMENT MC SCH ×2 (08:00→20:00)
[2021-10-22] MEDS: potassium chloride 8mEq ER tablet PO SCH (08:06)
[2021-10-22] MEDS: salt irrigation nasal spray 45 ML SPRAY NS PRN ×2 (08:06→22:26)
[2021-10-22] MEDS: furosemide 40mg/4ml inj IV SCH ×2 (08:06→20:28)
[2021-10-22] MEDS: guaiFENesin ER 600mg tablet PO SCH ×2 (08:06→20:28)
[2021-10-22] MEDS: venlafaxine XR 37.5mg cap (Q24H) PO SCH (08:06)
[2021-10-22] MEDS: atorvastatin 20mg tablet PO SCH (08:07)
[2021-10-22] MEDS: lisinopril 10 MG tablet PO SCH (08:07)
[2021-10-22] MEDS: pantoprazole 40mg Tablet.DR PO SCH (08:07)
[2021-10-22] MEDS: calcium polycarbophil 625mg tablet PO SCH ×2 (08:07→20:28)
[2021-10-22] MEDS: enoxaparin 40mg/0.4ml syringe SUBCUT SCH (08:08)
[2021-10-22] MEDS: ferrous sulfate 325mg tablet PO SCH ×3 (08:08→17:22)
[2021-10-22] MEDS: lactobacillus rhamnosus 10,000 MMU CELLS/CAPSULE PO SCH ×2 (08:08→20:27)
[2021-10-22] MEDS: levoTHYROXINE 175mcg tablet PO SCH (08:08)
[2021-10-22] MEDS: docusate sod 100mg capsule PO SCH ×2 (08:08→20:28)
[2021-10-22] MEDS: insulin Lispro (HumaLOG) vial - multi-dose SQ SCH ×2 (08:49→13:08)
[2021-10-22] MEDS ORDERED: potassium Cl 20 mEq SR tablet PO PRN (09:40)
[2021-10-22] MEDS ORDERED: magnesium 4gm in 100ml NS 100 ML IV PRN (09:40)
[2021-10-22] MEDS ORDERED: magnesium Cl slow-release 64mg tablet PO PRN (09:40)
[2021-10-22] MEDS ORDERED: potassium CL 10mEq/100ml bag 100 ML IV PRN (09:40)
[2021-10-22 11:00] VITALS: BP 100/50
[2021-10-22 11:10] LABS: ABG BASE EXCESS 12.9 mmol/L (-2.0-2.0); ABG HCO3 39.2 mmol/L (22.0-26.0); ABG OXYGEN SATURATION 87.5 % (94-97); ABG PCO2 (T) 59.1 mmHg (32.0-45.0); ABG PO2 (T) 53.2 mmHg (75.0-100.0); ALLEN'S TEST POSITIVE; FCOHb 0.6 % (0.0-3.9); FLOW 8 L/min; FMetHb 0.4 % (0.0-1.5); FO2Hb 86.6 % (94-97); TOTAL HEMOGLOBIN 11.8 G/dl (12.0-16.0)
--- NOTE | 2021-10-22 11:16 | NUR ---
PAGER ID: [phone] MESSAGE: [phone] MARLO SNEED IN [facility]. THIS WAS ON 8L HF, WE PUT HER UP TO 12L HF NOW, AWAIT COVID RESULTS. HILTON FUNEZ
[2021-10-22] MEDS: potassium Cl 20 mEq SR tablet PO PRN ×3 (11:29→20:36)
[2021-10-22] MEDS: levoFLOXACIN 500mg tablet PO SCH (11:29)
[2021-10-22] MEDS: acetaminophen 325mg tablet PO PRN (11:29)
[2021-10-22 15:00] VITALS: BP 96/59
[2021-10-22] MEDS: saliva stimulant agent 45ml spray MM PRN ×2 (15:55→22:26)
[2021-10-22 18:00] VITALS: BP 135/96
--- NOTE | 2021-10-22 18:36 | NUR ---
Problems reprioritized. Patient report given, questions answered & plan of care reviewed with Serafin CHAVARRIA.
[2021-10-22] MEDS: insulin glargine (Lantus) pen - multi-dose SQ SCH (21:00)
[2021-10-22 22:00] VITALS: BP 112/66
[2021-10-23] MEDS: ALPRAZolam 0.5mg tablet PO PRN ×2 (00:45→22:04)
[2021-10-23] MEDS: acetaminophen 325mg tablet PO PRN ×3 (00:46→23:51)
--- NOTE | 2021-10-23 06:27 | NUR ---
Patient in room U 3013. I have received report from Serafin CHAVARRIA and had the opportunity to ask questions and assume patient care. Patient resting in bed in no acute distress.
[2021-10-23 07:00] VITALS: BP 141/78
[2021-10-23 07:25] LABS: BASOPHILS # (AUTO) 0.1 X10'3 (0-0.2); BASOPHILS % (AUTO) 0.9 % (0-1); EOSINOPHILS # (AUTO) 0.3 X10'3 (0-0.9); EOSINOPHILS % (AUTO) 4.1 % (0-6); HEMATOCRIT 36.4 % (35.0-45.0); HEMOGLOBIN 10.7 g/dl (12.0-16.0); LYMPHOCYTES # (AUTO) 0.9 X10'3 (1.1-4.8); LYMPHOCYTES % (AUTO) 11.2 % (21-51); MEAN CORPUSCULAR HEMOGLOBIN 20.1 PG (27.0-31.0); MEAN CORPUSCULAR HGB CONC 29.3 g/dL (33.0-36.5); MEAN CORPUSCULAR VOLUME 68.4 FL (78-98); MEAN PLATELET VOLUME 8.5 FL (7.4-10.4); NEUTROPHILS # (AUTO) 5.9 X10'3 (1.8-7.7); NEUTROPHILS % (AUTO) 71.8 % (42-75); PLATELET COUNT 300 X10'3 (140-440); RED BLOOD COUNT 5.32 X10'6 (4.20-5.60); RED CELL DISTRIBUTION WIDTH 21.1 % (11.5-14.5); WHITE BLOOD COUNT 8.2 X10'3 (4.5-11.0)
[2021-10-23 07:37] LABS: ALANINE AMINOTRANSFERASE 9 U/L (12-78); ALBUMIN 2.8 G/DL (3.4-5.0); ALBUMIN/GLOBULIN RATIO 0.8 (1.1-1.5); ALKALINE PHOSPHATASE 64 IU/L (46-116); ANION GAP 4 (8-16); ASPARTATE AMINO TRANSFERASE 17 U/L (10-37); BILIRUBIN,TOTAL 0.6 MG/DL (0.1-1.0); BLOOD UREA NITROGEN 17 MG/DL (7-18); BUN/CREATININE RATIO 15.2 (6.6-38.0); CALCIUM 8.5 MG/DL (8.5-10.1); CHLORIDE 101 MMOL/L (99-107); CREATININE 1.12 MG/DL (0.40-0.90); GLUCOSE 154 MG/DL (70-104); PHOSPHORUS 4.2 MG/DL (2.3-4.5); POTASSIUM 3.5 MMOL/L (3.5-5.1); SODIUM 145 MMOL/L (135-145); TOTAL CARBON DIOXIDE 39.7 MMOL/L (24-32); TOTAL PROTEIN 6.4 G/DL (6.4-8.2); eGFR 48 ML/MIN
[2021-10-23] MEDS: K and/or MAG REPLACEMENT MC SCH ×2 (08:00→20:00)
[2021-10-23] MEDS: docusate sod 100mg capsule PO SCH ×2 (08:00→20:21)
[2021-10-23] MEDS: atorvastatin 20mg tablet PO SCH (08:13)
[2021-10-23] MEDS: potassium chloride 8mEq ER tablet PO SCH (08:13)
[2021-10-23] MEDS: furosemide 40mg/4ml inj IV SCH ×2 (08:13→20:32)
[2021-10-23] MEDS: levoTHYROXINE 175mcg tablet PO SCH (08:13)
[2021-10-23] MEDS: pantoprazole 40mg Tablet.DR PO SCH (08:14)
[2021-10-23] MEDS: venlafaxine XR 37.5mg cap (Q24H) PO SCH (08:14)
[2021-10-23] MEDS: enoxaparin 40mg/0.4ml syringe SUBCUT SCH (08:14)
[2021-10-23] MEDS: guaiFENesin ER 600mg tablet PO SCH ×2 (08:14→20:22)
[2021-10-23] MEDS: lactobacillus rhamnosus 10,000 MMU CELLS/CAPSULE PO SCH ×2 (08:14→20:21)
[2021-10-23] MEDS: calcium polycarbophil 625mg tablet PO SCH ×2 (08:15→20:22)
[2021-10-23] MEDS: ferrous sulfate 325mg tablet PO SCH ×3 (08:15→16:59)
[2021-10-23] MEDS: lisinopril 10 MG tablet PO SCH (08:15)
[2021-10-23] MEDS: insulin Lispro (HumaLOG) vial - multi-dose SQ SCH ×2 (08:21→14:12)
[2021-10-23 08:23] LABS: ANISOCYTOSIS 3+; HYPOCHROMASIA 2+; MICROCYTOSIS 2+; PLATELET ESTIMATE NORMAL
[2021-10-23 08:24] LABS: ELLIPTOCYTES FEW; ROULEAUX 1+; SCHISTOCYTES FEW
--- NOTE | 2021-10-23 09:48 | NUR ---
Initial: Pt admitted w/ SOB, CHF, and Pleural effusion per EMR, underwent thoracentesis 10/18 w/ 1.2L removed. Pt currently on Heart Healthy diet w/ 1.5L fluid restriction eating well w/ mostly 100% intake of meals meeting needs. Currently on 12L HF oxygen per documentation. LBM 10/21 receiving routine colace though pt noted to refuse sometimes. No nutrition intervention implemented at this time, will continue to monitor. Recs: 1. Continue Heart Healthy diet as tolerated w/ 1.5L fluid restriction per MD 2. Consider CCHO addition if BG routinely elevated 3. Bowel care per rx 4. Scaled wts Addendum: 10/23/21 at [address] Amended: Links added.
[2021-10-23 11:00] VITALS: BP 107/59
[2021-10-23] MEDS: levoFLOXACIN 500mg tablet PO SCH (12:10)
[2021-10-23] MEDS: salt irrigation nasal spray 45 ML SPRAY NS PRN ×2 (14:15→22:01)
[2021-10-23] MEDS: saliva stimulant agent 45ml spray MM PRN ×2 (14:15→22:00)
[2021-10-23 15:00] VITALS: BP 104/55
--- NOTE | 2021-10-23 15:14 | NUR ---
written education provided and reviewed with patient regarding CHF due to knowledge deficient
[2021-10-23 18:00] VITALS: BP 139/88
--- NOTE | 2021-10-23 18:09 | NUR ---
Problems reprioritized. Patient report given, questions answered & plan of care reviewed with Mitra CHAVARRIA. Patient resting in bed in no acute distress.
[2021-10-23] MEDS: insulin glargine (Lantus) pen - multi-dose SQ SCH (21:57)
[2021-10-24 02:00] VITALS: BP 144/86
--- NOTE | 2021-10-24 06:37 | NUR ---
Patient in room PCU 3013. I have received report from Mitra CHAVARRIA and had the opportunity to ask questions and assume patient care. Patient resting in bed in no acute distress.
--- NOTE | 2021-10-24 06:40 | NUR ---
Problems reprioritized. Patient report given, questions answered & plan of care reviewed with Daniela.
[2021-10-24 07:00] VITALS: BP 126/73
[2021-10-24] MEDS: K and/or MAG REPLACEMENT MC SCH ×2 (08:00→20:00)
[2021-10-24] MEDS: docusate sod 100mg capsule PO SCH ×2 (08:00→20:00)
[2021-10-24] MEDS: lactobacillus rhamnosus 10,000 MMU CELLS/CAPSULE PO SCH ×2 (08:18→20:27)
[2021-10-24] MEDS: ferrous sulfate 325mg tablet PO SCH ×3 (08:18→17:17)
[2021-10-24] MEDS: enoxaparin 40mg/0.4ml syringe SUBCUT SCH (08:18)
[2021-10-24] MEDS: pantoprazole 40mg Tablet.DR PO SCH (08:19)
[2021-10-24] MEDS: potassium chloride 8mEq ER tablet PO SCH (08:19)
[2021-10-24] MEDS: furosemide 40mg/4ml inj IV SCH ×2 (08:19→20:29)
[2021-10-24] MEDS: atorvastatin 20mg tablet PO SCH (08:19)
[2021-10-24] MEDS: levoTHYROXINE 175mcg tablet PO SCH (08:19)
[2021-10-24] MEDS: venlafaxine XR 37.5mg cap (Q24H) PO SCH (08:19)
[2021-10-24] MEDS: calcium polycarbophil 625mg tablet PO SCH ×2 (08:19→20:27)
[2021-10-24] MEDS: guaiFENesin ER 600mg tablet PO SCH ×2 (08:19→20:27)
[2021-10-24] MEDS: lisinopril 10 MG tablet PO SCH (08:20)
[2021-10-24] MEDS: insulin Lispro (HumaLOG) vial - multi-dose SQ SCH ×2 (08:26→13:11)
[2021-10-24] MEDS: saliva stimulant agent 45ml spray MM PRN ×2 (08:27→13:13)
[2021-10-24] MEDS: salt irrigation nasal spray 45 ML SPRAY NS PRN ×2 (08:27→13:13)
[2021-10-24 08:33] LABS: BASOPHILS # (AUTO) 0.1 X10'3 (0-0.2); BASOPHILS % (AUTO) 0.8 % (0-1); EOSINOPHILS # (AUTO) 0.4 X10'3 (0-0.9); EOSINOPHILS % (AUTO) 5.9 % (0-6); LYMPHOCYTES # (AUTO) 0.7 X10'3 (1.1-4.8); LYMPHOCYTES % (AUTO) 11.2 % (21-51); MEAN PLATELET VOLUME 8.3 FL (7.4-10.4); MONOCYTES # (AUTO) 0.8 X10'3 (0-0.9); MONOCYTES % (AUTO) 13.1 % (2-12); NEUTROPHILS # (AUTO) 4.4 X10'3 (1.8-7.7); PLATELET COUNT 292 X10'3 (140-440); WHITE BLOOD COUNT 6.4 X10'3 (4.5-11.0)
[2021-10-24 08:43] LABS: ALANINE AMINOTRANSFERASE 10 U/L (12-78); ALBUMIN 2.8 G/DL (3.4-5.0); ALBUMIN/GLOBULIN RATIO 0.8 (1.1-1.5); ALKALINE PHOSPHATASE 63 IU/L (46-116); ANION GAP 4 (8-16); ASPARTATE AMINO TRANSFERASE 20 U/L (10-37); BILIRUBIN,TOTAL 0.5 MG/DL (0.1-1.0); BLOOD UREA NITROGEN 14 MG/DL (7-18); CALCIUM 8.7 MG/DL (8.5-10.1); CHLORIDE 101 MMOL/L (99-107); CREATININE 1.17 MG/DL (0.40-0.90); GLUCOSE 158 MG/DL (70-104); POTASSIUM 3.5 MMOL/L (3.5-5.1); SODIUM 145 MMOL/L (135-145); TOTAL CARBON DIOXIDE 39.6 MMOL/L (24-32); TOTAL PROTEIN 6.3 G/DL (6.4-8.2); eGFR 45 ML/MIN
[2021-10-24 09:19] LABS: HEMATOCRIT 35.5 % (35.0-45.0); HEMOGLOBIN 11.1 g/dl (12.0-16.0); MEAN CORPUSCULAR HEMOGLOBIN 21.1 PG (27.0-31.0); MEAN CORPUSCULAR HGB CONC 31.4 g/dL (33.0-36.5); MEAN CORPUSCULAR VOLUME 67.2 FL (78-98); RED BLOOD COUNT 5.29 X10'6 (4.20-5.60)
[2021-10-24 10:06] LABS: ANISOCYTOSIS 2+; MICROCYTOSIS 2+; PLATELET ESTIMATE NORMAL
[2021-10-24 10:07] LABS: BURR CELLS FEW; ELLIPTOCYTES FEW; HYPOCHROMASIA 1+
[2021-10-24 11:00] VITALS: BP 131/78
[2021-10-24] MEDS: levoFLOXACIN 500mg tablet PO SCH (12:07)
[2021-10-24] MEDS: acetaminophen 325mg tablet PO PRN ×2 (13:12→20:27)
[2021-10-24 15:00] VITALS: BP 114/68
[2021-10-24 18:00] VITALS: BP 133/80
--- NOTE | 2021-10-24 18:22 | NUR ---
Problems reprioritized. Patient report given, questions answered & plan of care reviewed with Mitra CHAVARRIA. Patient resting in bed and in no acute distress.
[2021-10-24] MEDS: insulin glargine (Lantus) pen - multi-dose SQ SCH (20:54)
[2021-10-24 22:00] VITALS: BP 125/79
[2021-10-24] MEDS: ALPRAZolam 0.5mg tablet PO PRN (23:49)
[2021-10-25 02:00] VITALS: BP 111/51
--- NOTE | 2021-10-25 06:24 | NUR ---
Patient in room PCU 3013. I have received report from "Mitra CHAVARRIA and had the opportunity to ask questions and assume patient care. Patient resting in bed in no acute distress.
--- NOTE | 2021-10-25 06:35 | NUR ---
Problems reprioritized. Patient report given, questions answered & plan of care reviewed with Lynesy.
[2021-10-25 07:00] VITALS: BP 133/81
[2021-10-25] MEDS: docusate sod 100mg capsule PO SCH ×2 (08:00→20:00)
[2021-10-25] MEDS: K and/or MAG REPLACEMENT MC SCH ×2 (08:00→20:37)
[2021-10-25] MEDS ORDERED: chlorhexidine gluc 0.4% **topical ** 120ml btl. TP ONE (08:00)
[2021-10-25] MEDS: lisinopril 10 MG tablet PO SCH (09:04)
[2021-10-25] MEDS: pantoprazole 40mg Tablet.DR PO SCH (09:04)
[2021-10-25] MEDS: calcium polycarbophil 625mg tablet PO SCH ×2 (09:04→20:26)
[2021-10-25] MEDS: ferrous sulfate 325mg tablet PO SCH ×3 (09:05→16:56)
[2021-10-25] MEDS: enoxaparin 40mg/0.4ml syringe SUBCUT SCH (09:05)
[2021-10-25] MEDS: potassium chloride 8mEq ER tablet PO SCH (09:05)
[2021-10-25] MEDS: lactobacillus rhamnosus 10,000 MMU CELLS/CAPSULE PO SCH ×2 (09:05→20:26)
[2021-10-25] MEDS: venlafaxine XR 37.5mg cap (Q24H) PO SCH (09:05)
[2021-10-25] MEDS: atorvastatin 20mg tablet PO SCH (09:06)
[2021-10-25] MEDS: salt irrigation nasal spray 45 ML SPRAY NS PRN ×2 (09:06→12:00)
[2021-10-25] MEDS: saliva stimulant agent 45ml spray MM PRN ×2 (09:06→12:00)
[2021-10-25] MEDS: levoTHYROXINE 175mcg tablet PO SCH (09:06)
[2021-10-25] MEDS: furosemide 40mg/4ml inj IV SCH ×2 (09:06→20:27)
[2021-10-25] MEDS: insulin Lispro (HumaLOG) vial - multi-dose SQ SCH ×2 (09:11→12:49)
[2021-10-25] MEDS: guaiFENesin ER 600mg tablet PO SCH ×2 (09:27→20:26)
[2021-10-25 11:00] VITALS: BP 133/71
[2021-10-25] MEDS: levoFLOXACIN 500mg tablet PO SCH (11:59)
[2021-10-25 15:00] VITALS: BP 111/67
--- NOTE | 2021-10-25 17:25 | NUR ---
Page Sent to Dr. Quintana regarding change in code status promotional table spacer PAGER ID: [phone] MESSAGE: [id number] Felipe Pt would like to change code status to full code. She just does not want to be kept alive on machines for a prolonged
--- NOTE | 2021-10-25 17:27 | NUR ---
per telephone conversation with Dr. brewer she will change code status later.
[2021-10-25 18:00] VITALS: BP 103/61
--- NOTE | 2021-10-25 18:21 | NUR ---
Problems reprioritized. Patient report given, questions answered & plan of care reviewed with Mitra CHAVARRIA . Patient resting in bed in no acute distress.
[2021-10-25] MEDS: insulin glargine (Lantus) pen - multi-dose SQ SCH (21:48)
[2021-10-25] MEDS: ALPRAZolam 0.5mg tablet PO PRN (21:59)
[2021-10-25 22:00] VITALS: BP 105/66
[2021-10-25] MEDS: acetaminophen 325mg tablet PO PRN (22:09)
[2021-10-26 02:00] VITALS: BP 99/59
[2021-10-26 06:00] VITALS: BP 145/51
--- NOTE | 2021-10-26 06:00 | NUR ---
Patient in room PCU 3013. I have received report from Mitra CHAVARRIA and had the opportunity to ask questions and assume patient care.
[2021-10-26] MEDS: K and/or MAG REPLACEMENT MC SCH ×2 (08:00→19:16)
[2021-10-26] MEDS: guaiFENesin ER 600mg tablet PO SCH ×2 (08:00→19:15)
[2021-10-26] MEDS: atorvastatin 20mg tablet PO SCH (08:48)
[2021-10-26] MEDS: venlafaxine XR 37.5mg cap (Q24H) PO SCH (08:49)
[2021-10-26] MEDS: potassium chloride 8mEq ER tablet PO SCH (08:50)
[2021-10-26] MEDS: lisinopril 10 MG tablet PO SCH (08:50)
[2021-10-26] MEDS: docusate sod 100mg capsule PO SCH ×2 (08:51→19:07)
[2021-10-26] MEDS: levoTHYROXINE 175mcg tablet PO SCH (08:51)
[2021-10-26] MEDS: pantoprazole 40mg Tablet.DR PO SCH (08:51)
[2021-10-26] MEDS: calcium polycarbophil 625mg tablet PO SCH ×2 (08:51→19:18)
[2021-10-26] MEDS: furosemide 40mg/4ml inj IV SCH ×2 (08:51→19:15)
[2021-10-26] MEDS: lactobacillus rhamnosus 10,000 MMU CELLS/CAPSULE PO SCH ×2 (08:51→19:15)
[2021-10-26] MEDS: ferrous sulfate 325mg tablet PO SCH ×3 (08:53→16:50)
[2021-10-26] MEDS: enoxaparin 40mg/0.4ml syringe SUBCUT SCH (08:53)
[2021-10-26] MEDS: HYDROcodone/acetaminophen 10/325mg tab PO PRN (08:54)
[2021-10-26 11:00] VITALS: BP 126/84
[2021-10-26] MEDS: levoFLOXACIN 500mg tablet PO SCH (11:00)
--- NOTE | 2021-10-26 11:00 | NUR ---
pt ambulated with cane without difficulty.
[2021-10-26] MEDS: insulin Lispro (HumaLOG) vial - multi-dose SQ SCH ×2 (12:46→19:06)
--- NOTE | 2021-10-26 12:52 | NUR ---
IR team to bedside in 3013A, pt consented by IR PA, VSS obtained, stable, US images obtained per IR PA, not enough fluid visualized for drainage. 126/84 HR 99 O2 94% on 8L NC RR 18
--- NOTE | 2021-10-26 13:30 | NUR ---
interventional radiology finished at bedside, vital remains stable, no thoracentesis performed due to lack of appropriate levels of fluid.
--- NOTE | 2021-10-26 14:00 | NUR ---
patient up to the bathroom with minimal assistance. cane used to ambulated
--- NOTE | 2021-10-26 16:07 | NUR ---
WOUND INFECTION EDUCATION PROVIDED BY WOUND CARE 1. Patient instructed to call their primary doctor, or go the ED immediately if any of the following symptoms occur: * Increased pain in wound * Increase in drainage from the wound * Redness in the skin surrounding the wound * Warmth in the skin surrounding the wound * Bleeding from the wound * Temperature of 101 or greater 2. If any of these occur while in the hospital tell a nurse immediately. Addendum: 10/26/21 at 1607 by Melonie Whelan RN Amended: Links added.
[2021-10-26] MEDS: salt irrigation nasal spray 45 ML SPRAY NS PRN (16:54)
[2021-10-26] MEDS: saliva stimulant agent 45ml spray MM PRN (16:55)
[2021-10-26] MEDS: acetaminophen 325mg tablet PO PRN (17:04)
[2021-10-26 18:00] VITALS: BP 125/70
[2021-10-26 22:00] VITALS: BP 117/65
[2021-10-26] MEDS: ALPRAZolam 0.5mg tablet PO PRN (22:32)
[2021-10-26] MEDS: insulin glargine (Lantus) pen - multi-dose SQ SCH (22:41)
[2021-10-27 02:00] VITALS: BP 108/67
[2021-10-27 06:00] VITALS: BP 107/59
[2021-10-27] MEDS: K and/or MAG REPLACEMENT MC SCH ×2 (08:00→18:26)
[2021-10-27] MEDS: potassium chloride 8mEq ER tablet PO SCH (08:25)
[2021-10-27] MEDS: venlafaxine XR 37.5mg cap (Q24H) PO SCH (08:25)
[2021-10-27] MEDS: pantoprazole 40mg Tablet.DR PO SCH (08:25)
[2021-10-27] MEDS: lactobacillus rhamnosus 10,000 MMU CELLS/CAPSULE PO SCH ×2 (08:25→18:58)
[2021-10-27] MEDS: docusate sod 100mg capsule PO SCH ×2 (08:25→18:59)
[2021-10-27] MEDS: ferrous sulfate 325mg tablet PO SCH ×3 (08:27→18:31)
[2021-10-27] MEDS: calcium polycarbophil 625mg tablet PO SCH ×2 (08:27→18:58)
[2021-10-27] MEDS: furosemide 40mg/4ml inj IV SCH ×2 (08:28→18:58)
[2021-10-27] MEDS: atorvastatin 20mg tablet PO SCH (08:28)
[2021-10-27] MEDS: lisinopril 10 MG tablet PO SCH (08:28)
[2021-10-27] MEDS: guaiFENesin ER 600mg tablet PO SCH ×2 (08:28→18:59)
[2021-10-27] MEDS: enoxaparin 40mg/0.4ml syringe SUBCUT SCH (08:29)
[2021-10-27] MEDS: levoTHYROXINE 175mcg tablet PO SCH (08:30)
[2021-10-27] MEDS: insulin Lispro (HumaLOG) vial - multi-dose SQ SCH ×4 (09:45→21:34)
[2021-10-27 11:00] VITALS: BP 124/67
[2021-10-27] MEDS: levoFLOXACIN 500mg tablet PO SCH (11:59)
[2021-10-27] MEDS: acetaminophen 325mg tablet PO PRN ×2 (12:40→21:17)
--- NOTE | 2021-10-27 12:51 | NUR ---
PAGER ID: [phone] MESSAGE: [id number] Renetta Wang- requests Refresh eye drops BID. Sonya FUNEZ
[2021-10-27 15:00] VITALS: BP 113/72
[2021-10-27 18:00] VITALS: BP 123/69
--- NOTE | 2021-10-27 18:00 | NUR ---
Problems reprioritized. Patient report given, questions answered & plan of care reviewed with Keri CHAVARRIA.
[2021-10-27] MEDS ORDERED: PEG 400/HYPROMELLOSE/GLYCERIN 15ml bottle EACHEYE PRN (19:00)
[2021-10-27] MEDS: ALPRAZolam 0.5mg tablet PO PRN (21:16)
[2021-10-27] MEDS: insulin glargine (Lantus) pen - multi-dose SQ SCH (21:32)
[2021-10-27 22:00] VITALS: BP 125/72
[2021-10-28 02:00] VITALS: BP 109/64
[2021-10-28 06:00] VITALS: BP 138/74
[2021-10-28] MEDS: docusate sod 100mg capsule PO SCH ×2 (08:00→19:05)
[2021-10-28] MEDS: K and/or MAG REPLACEMENT MC SCH ×2 (08:00→19:06)
[2021-10-28] MEDS: potassium chloride 8mEq ER tablet PO SCH (08:23)
[2021-10-28] MEDS: calcium polycarbophil 625mg tablet PO SCH ×2 (08:23→19:05)
[2021-10-28] MEDS: venlafaxine XR 37.5mg cap (Q24H) PO SCH (08:23)
[2021-10-28] MEDS: lisinopril 10 MG tablet PO SCH (08:24)
[2021-10-28] MEDS: lactobacillus rhamnosus 10,000 MMU CELLS/CAPSULE PO SCH ×2 (08:24→19:05)
[2021-10-28] MEDS: atorvastatin 20mg tablet PO SCH (08:25)
[2021-10-28] MEDS: pantoprazole 40mg Tablet.DR PO SCH (08:25)
[2021-10-28] MEDS: enoxaparin 40mg/0.4ml syringe SUBCUT SCH (08:25)
[2021-10-28] MEDS: ferrous sulfate 325mg tablet PO SCH ×3 (08:25→17:48)
[2021-10-28] MEDS: guaiFENesin ER 600mg tablet PO SCH ×2 (08:25→19:05)
[2021-10-28] MEDS: furosemide 40mg/4ml inj IV SCH ×2 (08:25→19:05)
[2021-10-28] MEDS: levoTHYROXINE 175mcg tablet PO SCH (08:29)
[2021-10-28] MEDS: insulin Lispro (HumaLOG) vial - multi-dose SQ SCH ×2 (08:48→19:15)
[2021-10-28 11:00] VITALS: BP 109/67
[2021-10-28] MEDS: levoFLOXACIN 500mg tablet PO SCH (12:14)
[2021-10-28 15:00] VITALS: BP 104/81
[2021-10-28] MEDS ORDERED: iohexol 300mg/ml 100ml inj. ONE (16:08)
[2021-10-28 18:00] VITALS: BP 121/76
--- NOTE | 2021-10-28 18:00 | NUR ---
Problems reprioritized. Patient report given, questions answered & plan of care reviewed with Keri CHAVARRIA.
[2021-10-28] MEDS: acetaminophen 325mg tablet PO PRN (21:09)
[2021-10-28] MEDS: ALPRAZolam 0.5mg tablet PO PRN (21:09)
[2021-10-28] MEDS: insulin glargine (Lantus) pen - multi-dose SQ SCH (21:31)
[2021-10-28 22:00] VITALS: BP 119/80
[2021-10-29 01:38] VITALS: BP 124/78
--- NOTE | 2021-10-29 01:38 | NUR ---
patient had a BM
[2021-10-29 06:00] VITALS: BP 156/95
[2021-10-29] MEDS: docusate sod 100mg capsule PO SCH (08:00)
[2021-10-29] MEDS: K and/or MAG REPLACEMENT MC SCH (08:00)
[2021-10-29] MEDS ORDERED: LEVO500T90 PO (08:17)
[2021-10-29] MEDS ORDERED: IPRA3AMP9 NEB (08:17)
[2021-10-29] MEDS ORDERED: FURO20TA4 PO (08:17)
[2021-10-29] MEDS ORDERED: FER325T PO (08:17)
[2021-10-29] MEDS: pantoprazole 40mg Tablet.DR PO SCH (08:39)
[2021-10-29] MEDS: calcium polycarbophil 625mg tablet PO SCH (08:39)
[2021-10-29] MEDS: atorvastatin 20mg tablet PO SCH (08:39)
[2021-10-29] MEDS: ferrous sulfate 325mg tablet PO SCH ×2 (08:39→14:20)
[2021-10-29] MEDS: venlafaxine XR 37.5mg cap (Q24H) PO SCH (08:39)
[2021-10-29] MEDS: guaiFENesin ER 600mg tablet PO SCH (08:40)
[2021-10-29] MEDS: lactobacillus rhamnosus 10,000 MMU CELLS/CAPSULE PO SCH (08:40)
[2021-10-29] MEDS: potassium chloride 8mEq ER tablet PO SCH (08:40)
[2021-10-29] MEDS: lisinopril 10 MG tablet PO SCH (08:40)
[2021-10-29] MEDS: enoxaparin 40mg/0.4ml syringe SUBCUT SCH (08:41)
[2021-10-29] MEDS: furosemide 40mg/4ml inj IV SCH (08:41)
[2021-10-29] MEDS: levoTHYROXINE 175mcg tablet PO SCH (08:43)
[2021-10-29] MEDS: insulin Lispro (HumaLOG) vial - multi-dose SQ SCH ×2 (08:56→14:12)
[2021-10-29 11:00] VITALS: BP 105/70
[2021-10-29] MEDS: levoFLOXACIN 500mg tablet PO SCH (14:01)
--- NOTE | 2021-10-29 15:03 | NUR ---
PAGER ID: [phone] MESSAGE: [phone] Renetta Wang- Trying to discharge. Can you write a hard prescription? Sonya [phone] Addendum: 10/29/21 at 1555 by Sonya Mondragon RN hard prescription given to pt
--- NOTE | 2021-10-29 15:30 | NUR ---
Patient stable for discharge. Discharge instructions given to patient and patient verbalized understanding. Per pt request levofloxacin was called into [facility] in [place] and the other medications given as a hard copy so it can be mailed to patient's preferred pharmacy. Front wheel walker delivered from [facility]. PIV removed with catheter intact. Telemetry removed. Patient requested her son to not pick her up and patient accepted taxi ride home. Son was informed and made aware of corn picker time by supercharger repair supervisor. All belongings gathered and patient transferred to [facility].
--- NOTE | 2021-10-29 16:56 | NUR ---
I RECEIVED PHONE CALL FROM PT SON. PT SON WAS BELLIGERENT TO ME DEMANDING MY NAME. I GAVE MY FIRST NAME. HE DEMANDED MY LAST. I TOLD HIM I DIDN'T GIVE THAT INFORMATION, HE HAS NOT IDENTIFIED HIMSELF OR THE REASON FOR HIS HOSTILITY. HE THEN STATED, "WELL,YOU ARE GONNA FIND OUT WHY SOON ENOUGH. I TOLD HIM I WAS DONE WITH THE CONVERSATION AND WOULD TRANSFER HIM TO THE GROUP HOME COUNSELOR. I THEN TRANSFERRED HIS CALL. PT WAS D/C TO HOME TODAY. PT TOLD RAAD CHAVARRIA THAT THE SON WAS DRUNK AND SHE DIDN'T WANT TO RIDE WITH HIM. WE CALLED A CAB FOR HER.
== END 2021-10-29 16:23 | disposition home or self-care (01) | DRG 189 ==
LOC: ER 07:17 → ED HOLD 11:21 → PCU 3S 10-19 01:20
PROVIDERS: ADMIT Family Medicine; ATTEND Family Medicine
PROC: 0W993ZZ Drainage of Right Pleural Cavity, Percutaneous Approach (ICD-10-PCS; 2021-10-18)
PROC: 5A0945A Assistance with Respiratory Ventilation, 24-96 Consecutive Hours, High Flow/Velocity Cannula (ICD-10-PCS; principal; 2021-10-22)
PROC: B32T1ZZ Computerized Tomography (CT Scan) of Left Pulmonary Artery using Low Osmolar Contrast (ICD-10-PCS; 2021-10-28)
PROC: B3201ZZ Computerized Tomography (CT Scan) of Thoracic Aorta using Low Osmolar Contrast (ICD-10-PCS; 2021-10-28)
PROC: B32S1ZZ Computerized Tomography (CT Scan) of Right Pulmonary Artery using Low Osmolar Contrast (ICD-10-PCS; 2021-10-28)
DX: J96.21 Acute and chronic respiratory failure with hypoxia (principal); I50.33 Acute on chronic diastolic (congestive) heart failure; I13.0 Hypertensive heart and chronic kidney disease with heart failure and stage 1 through stage 4 chronic kidney disease, or unspecified chronic kidney disease; J91.8 Pleural effusion in other conditions classified elsewhere; N18.9 Chronic kidney disease, unspecified; Z20.822 Contact with and (suspected) exposure to COVID-19; E03.9 Hypothyroidism, unspecified; E11.22 Type 2 diabetes mellitus with diabetic chronic kidney disease; E11.649 Type 2 diabetes mellitus with hypoglycemia without coma; E11.65 Type 2 diabetes mellitus with hyperglycemia; D50.9 Iron deficiency anemia, unspecified; K22.70 Barrett's esophagus without dysplasia; E78.5 Hyperlipidemia, unspecified; F32.A Depression, unspecified; E78.00 Pure hypercholesterolemia, unspecified; I25.10 Atherosclerotic heart disease of native coronary artery without angina pectoris; J44.9 Chronic obstructive pulmonary disease, unspecified; Z60.2 Problems related to living alone; M41.9 Scoliosis, unspecified; F41.9 Anxiety disorder, unspecified; G89.29 Other chronic pain; M54.9 Dorsalgia, unspecified; Z99.81 Dependence on supplemental oxygen; Z95.5 Presence of coronary angioplasty implant and graft; I25.2 Old myocardial infarction; Z91.14 Patient's other noncompliance with medication regimen; Z88.8 Allergy status to other drugs, medicaments and biological substances; Z79.899 Other long term (current) drug therapy; Z98.51 Tubal ligation status
CPT/HCPCS: 32555; 36415; 36600; 71045; 71275; 76604; 80053; 80061; 81001; 82803; 82948; 83036; 83540; 83550; 83735; 83880; 84100; 84443; 84484; 85008; 85018; 85025; 85610; 87081; 87635; 93005; 93306; 94640; 94667; 94668; 94760; 97116; 97161; 97530; 99285; G0378; J1650; J1815; J1940; J3490; Q9967

== ENCOUNTER 2022-11-19 21:43 | Inpatient (IN) | payer MEDICARE, OTHER ==
[~2022-11-19] VITALS: Ht 170.2 cm; Wt 113.6 kg
[~2022-11-19 21:43] MED LIST changes: -ALBU18HF2 IH; -ASPI-611 PO; +ATOR40TA PO; -BACL10TA PO; -DIPH25CA83 PO; -FAMO-128 PO; +FERR325T32 PO; -GEMF600T89 PO; -GLIP5TAB13 PO; -HYDR-4383 PO; +IPRA3AMP9 NEB; -LEVO150T8 PO; +LEVO175C2 PO; -LOSA50TA64 PO; -LYR75C PO; -MEDR2.5T PO; -METF-316 PO; +METF750T46 PO; -NITR0.3T SL; -NPH,100V SQ; +NYST15OI14 TP; +POTA8CAP20 PO; -POTA8TAB8 PO; +PREG150C PO
[2022-11-19] MEDS ORDERED: nitroGLYCERIN-Tridil 50MG/D5W 250 ML IV PRN (21:55)
[2022-11-19] MEDS ORDERED: LORazepam 2 mg/ml vial IV ONE (22:00)
[2022-11-19 22:05] LABS: BASOPHILS # (AUTO) 0.1 X10'3 (0-0.2); BASOPHILS % (AUTO) 0.5 % (0-1); EOSINOPHILS # (AUTO) 0.2 X10'3 (0-0.9); EOSINOPHILS % (AUTO) 0.8 % (0-6); LYMPHOCYTES # (AUTO) 0.9 X10'3 (1.1-4.8); LYMPHOCYTES % (AUTO) 4.6 % (21-51); MEAN PLATELET VOLUME 7.2 FL (7.4-10.4); MONOCYTES # (AUTO) 0.9 X10'3 (0-0.9); MONOCYTES % (AUTO) 4.8 % (2-12); NEUTROPHILS # (AUTO) 17.6 X10'3 (1.8-7.7); NEUTROPHILS % (AUTO) 89.3 % (42-75); PLATELET COUNT 374 X10'3 (140-440); WHITE BLOOD COUNT 19.7 X10'3 (4.5-11.0)
[2022-11-19] MEDS ORDERED: methylPREDNISolone sod succ 125mg/2ml vial IV ONE (22:15)
[2022-11-19] MEDS ORDERED: azithromycin/NS 500mg/250ml 250 ML IV ONE (22:15)
[2022-11-19] MEDS ORDERED: furosemide 10 MG/1 ML 10ml inj IV ONE (22:15)
[2022-11-19] MEDS ORDERED: ipratropium/albuterol 3ml nebule NEB ONE (22:15)
[2022-11-19 22:21] LABS: ALANINE AMINOTRANSFERASE 84 U/L (12-78); ALBUMIN 3.6 G/DL (3.4-5.0); ALBUMIN/GLOBULIN RATIO 0.9 (1.1-1.5); ALKALINE PHOSPHATASE 220 IU/L (46-116); ANION GAP 8 (8-16); ASPARTATE AMINO TRANSFERASE 161 U/L (10-37); BILIRUBIN,TOTAL 1.8 MG/DL (0.1-1.0); BLOOD UREA NITROGEN 11 MG/DL (7-18); BUN/CREATININE RATIO 10.3 (6.6-38.0); CALCIUM 8.7 MG/DL (8.5-10.1); CHLORIDE 101 MMOL/L (99-107); CREATININE 1.07 MG/DL (0.40-0.90); GLUCOSE 198 MG/DL (70-104); POTASSIUM 3.6 MMOL/L (3.5-5.1); SODIUM 139 MMOL/L (135-145); TOTAL CARBON DIOXIDE 30.3 MMOL/L (24-32); TOTAL PROTEIN 7.4 G/DL (6.4-8.2); eGFR 50 ML/MIN
[2022-11-19 22:31] LABS: HEMATOCRIT 38.6 % (35.0-45.0); HEMOGLOBIN 12.5 g/dl (12.0-16.0); MEAN CORPUSCULAR HEMOGLOBIN 24.1 PG (27.0-31.0); MEAN CORPUSCULAR HGB CONC 32.5 g/dL (33.0-36.5); MEAN CORPUSCULAR VOLUME 74.2 FL (78-98)
[2022-11-19] MEDS ORDERED: ondansetron/PF 4mg/2ml inj IV ONE (22:35)
[2022-11-19 22:40] LABS: ABG BASE EXCESS 0.1 mmol/L (-2.0-2.0); ABG HCO3 25.6 mmol/L (22.0-26.0); ABG OXYGEN SATURATION 90.8 % (94-97); ABG PCO2 (T) 47.2 mmHg (32.0-45.0); ABG PO2 (T) 70.5 mmHg (75.0-100.0); ALLEN'S TEST POSITIVE; FCOHb 0.6 % (0.0-3.9); FLOW 15 L/min; FMetHb 0.3 % (0.0-1.5); PATIENT TEMPERATURE 38.3
[2022-11-19 22:51] LABS: ANISOCYTOSIS 3+; MICROCYTOSIS 1+; PLATELET ESTIMATE NORMAL; TOTAL CELLS COUNTED 100
[2022-11-19 22:52] LABS: ELLIPTOCYTES FEW
[2022-11-20] MEDS ORDERED: magnesium hydroxide 30ml (MOM) UD suspension PO PRN (01:25)
[2022-11-20] MEDS ORDERED: potassium Cl 20 mEq SR tablet PO PRN ×2 (01:25)
[2022-11-20] MEDS ORDERED: mag hydrox/Alum hydrox/simeth 30ml oral suspension PO PRN (01:25)
[2022-11-20] MEDS ORDERED: ondansetron/PF 4mg/2ml inj IV PRN (01:25)
[2022-11-20] MEDS ORDERED: magnesium Cl slow-release 64mg tablet PO PRN (01:25)
[2022-11-20] MEDS ORDERED: acetaminophen 325mg tablet PO PRN (01:25)
[2022-11-20] MEDS ORDERED: magnesium 4gm in 100ml NS 100 ML IV PRN (01:25)
[2022-11-20] MEDS ORDERED: potassium Cl 40MEQ/1/2NS 520ml 520 ML IV PRN (01:25)
[2022-11-20] MEDS ORDERED: dextrose 50%-water 50ml dispensing syringe IV PRN ×2 (01:30)
[2022-11-20] MEDS ORDERED: DEXTROSE 15 GM of carb/4 tabs (each vial/BOTTLE has 4 tablets) PO PRN ×2 (01:30)
[2022-11-20] MEDS ORDERED: glucagon, human recombinant 1mg kit SUBCUT PRN (01:30)
[2022-11-20] MEDS ORDERED: MESSAGE TO PHARMACY PO ONE (01:30)
[2022-11-20] MEDS ORDERED: aspirin 81mg, enteric-coated 1 TAB TABLET.DR PO ONE (01:30)
--- NOTE | 2022-11-20 01:59 | NUR ---
Aspirin 324 mg given by EMS.
[2022-11-20 02:59] LABS: POTASSIUM 3.8 MMOL/L (3.5-5.1)
--- NOTE | 2022-11-20 07:41 | NUR ---
contacted pharmacy for pt AM dose of levothyroxine
[2022-11-20] MEDS: levoTHYROXINE 175mcg tablet PO SCH (07:55)
[2022-11-20] MEDS ORDERED: atorvastatin 20mg tablet PO SCH (08:00)
[2022-11-20] MEDS: furosemide 20MG tablet PO SCH ×2 (08:24→19:56)
[2022-11-20] MEDS: aspirin 81mg, enteric-coated 1 TAB TABLET.DR PO SCH (08:24)
[2022-11-20] MEDS: pantoprazole 40mg Tablet.DR PO SCH (08:24)
[2022-11-20] MEDS: pregabalin 75mg capsule PO SCH ×2 (08:24→19:56)
[2022-11-20] MEDS: lisinopril 10 MG tablet PO SCH (08:25)
[2022-11-20] MEDS: docusate sod 100mg capsule PO SCH ×2 (08:26→19:56)
[2022-11-20] MEDS: ferrous sulfate 325mg tablet PO SCH ×3 (08:26→21:18)
[2022-11-20] MEDS: metoprolol tartrate 12.5mg (1/2 tablet) PO SCH ×2 (08:26→19:57)
[2022-11-20] MEDS: heparin, porcine 5000 units/ml vial SQ SCH ×2 (08:28→19:58)
[2022-11-20] MEDS: venlafaxine XR 37.5mg cap (Q24H) PO SCH (08:28)
[2022-11-20] MEDS: piperacillin/tazo 4.5gm/100ml 100 ML IV SCH ×2 (08:28→17:24)
[2022-11-20] MEDS: nystatin 15 GM ointment TP SCH ×3 (08:31→21:18)
[2022-11-20] MEDS: methylPREDNISolone sod succ/PF 40mg inj. IV SCH ×3 (08:40→21:18)
[2022-11-20] MEDS: insulin Lispro (HumaLOG) vial - multi-dose SQ SCH ×2 (08:48→13:32)
[2022-11-20] MEDS: K and/or MAG REPLACEMENT MC SCH ×2 (08:58→20:00)
--- NOTE | 2022-11-20 08:59 | NUR ---
Pt ate 100% of emal tray on nasal canula, then placed back on bipap Addendum: 11/20/22 at 0859 by ROMAIN MEAL TRAY*
--- NOTE | 2022-11-20 11:32 | NUR ---
PAGE SENT TO DR BRUMFIELD AT THIS TIME TO INFORM OF BP 84/57.
[2022-11-20] MEDS: ipratropium/albuterol 3ml nebule NEB PRN (13:26)
[2022-11-20 15:00] VITALS: BP 93/58
[2022-11-20] MEDS ORDERED: ASPI-611 PO (15:46)
[2022-11-20] MEDS ORDERED: ALPR1TAB2 PO (15:46)
[2022-11-20] MEDS ORDERED: NYST15CR36 TOP (15:48)
[2022-11-20] MEDS ORDERED: LISI10TA27 PO (15:49)
[2022-11-20] MEDS ORDERED: IPRA3AMP31 IH (15:50)
[2022-11-20] MEDS ORDERED: FERR325T29 PO (15:52)
--- NOTE | 2022-11-20 18:30 | NUR ---
Patient in bed with the head of the bed elevated to semi-fowlers position. Patient is alert and oriented times 4. call light within reach and all personal belongings within reach
[2022-11-20] MEDS ORDERED: regadenoson 0.4mg/5ml syringe IV PRN (19:05)
[2022-11-20] MEDS ORDERED: metoprolol tartrate 1mg/ml inj IV PRN (19:05)
[2022-11-20] MEDS ORDERED: nitroGLYCERIN 0.4mg SUBLingual tab SL PRN (19:05)
[2022-11-20] MEDS ORDERED: aminophylline 250mg/10ml inj. IV PRN (19:05)
--- NOTE | 2022-11-20 19:06 | NUR ---
Problems reprioritized. Patient report given, questions answered & plan of care reviewed with Adis RN, patient stable at transfer of care.
[2022-11-20] MEDS: ALPRAZolam 0.5mg tablet PO PRN (20:05)
[2022-11-20 22:00] VITALS: BP 115/66
[2022-11-21] VITALS (9 sets, daily range): BP systolic 98–127; BP diastolic 59–78
[2022-11-21] MEDS: piperacillin/tazo 4.5gm/100ml 100 ML IV SCH ×4 (00:29→16:45)
--- NOTE | 2022-11-21 03:00 | NUR ---
Patient refused 3am vitals. Educated patient that it is important to take her vital signs to make sure that she is in no distress, patient still refused
--- NOTE | 2022-11-21 04:29 | NUR ---
patient refusing to put back on her bipap, educated patient that she needs to have her bipap on for for her breathing, patient still refuse.
--- NOTE | 2022-11-21 05:57 | NUR ---
Patient in bed with the head of the bed elevated to s semi-fowlers position. Patient in bed with her eyes closed. Patient connected to bipap. Patient has no signs or symptoms of distress. patient call light within reach and all personal belongings within reach
[2022-11-21 06:07] LABS: BASOPHILS % (AUTO) 0.1 % (0-1); EOSINOPHILS % (AUTO) 0 % (0-6); HEMATOCRIT 35.3 % (35.0-45.0); HEMOGLOBIN 10.9 g/dl (12.0-16.0); LYMPHOCYTES # (AUTO) 0.2 X10'3 (1.1-4.8); LYMPHOCYTES % (AUTO) 1.5 % (21-51); MEAN CORPUSCULAR HEMOGLOBIN 23.5 PG (27.0-31.0); MEAN CORPUSCULAR HGB CONC 30.8 g/dL (33.0-36.5); MEAN CORPUSCULAR VOLUME 76.3 FL (78-98); MEAN PLATELET VOLUME 7.5 FL (7.4-10.4); MONOCYTES # (AUTO) 0.8 X10'3 (0-0.9); MONOCYTES % (AUTO) 5.3 % (2-12); NEUTROPHILS # (AUTO) 13.5 X10'3 (1.8-7.7); NEUTROPHILS % (AUTO) 93.1 % (42-75); PLATELET COUNT 309 X10'3 (140-440); RED BLOOD COUNT 4.62 X10'6 (4.20-5.60); RED CELL DISTRIBUTION WIDTH 20.7 % (11.5-14.5); WHITE BLOOD COUNT 14.5 X10'3 (4.5-11.0)
[2022-11-21 06:17] LABS: ALBUMIN 3.2 G/DL (3.4-5.0); ALBUMIN/GLOBULIN RATIO 0.9 (1.1-1.5); ALKALINE PHOSPHATASE 178 IU/L (46-116); BILIRUBIN,TOTAL 0.9 MG/DL (0.1-1.0); BLOOD UREA NITROGEN 45 MG/DL (7-18); MAGNESIUM 2.4 MG/DL (1.5-2.4)
[2022-11-21 06:32] LABS: ANISOCYTOSIS 3+; BURR CELLS 1+; ELLIPTOCYTES 1+; HYPOCHROMASIA 1+; MICROCYTOSIS 1+; PLATELET ESTIMATE NORMAL; POLYCHROMASIA 1+
[2022-11-21 06:33] LABS: SCHISTOCYTES FEW
[2022-11-21] MEDS: levoTHYROXINE 175mcg tablet PO SCH (07:00)
[2022-11-21] MEDS: K and/or MAG REPLACEMENT MC SCH ×2 (08:00→20:00)
[2022-11-21] MEDS: nystatin 15 GM ointment TP SCH ×2 (08:00→13:01)
[2022-11-21 08:08] LABS: ALANINE AMINOTRANSFERASE 95 U/L (12-78); ANION GAP 11 (8-16); ASPARTATE AMINO TRANSFERASE 74 U/L (10-37); CALCIUM 8.3 MG/DL (8.5-10.1); CHLORIDE 98 MMOL/L (99-107); CHOL/HDL RATIO 2.9 (0.00-4.99); CHOLESTEROL 94 MG/DL (0-200); GLUCOSE 379 MG/DL (70-104); HDL CHOLESTEROL 32 MG/DL (35-60); LDL CHOLESTEROL 50 MG/DL (50-100); SODIUM 134 MMOL/L (135-145); TOTAL PROTEIN 6.7 G/DL (6.4-8.2); TRIGLYCERIDES 66 MG/DL (20-135); eGFR 28 ML/MIN
[2022-11-21] MEDS: methylPREDNISolone sod succ/PF 40mg inj. IV SCH ×3 (08:20→21:00)
[2022-11-21] MEDS: aspirin 81mg, enteric-coated 1 TAB TABLET.DR PO SCH (08:21)
[2022-11-21] MEDS: venlafaxine XR 37.5mg cap (Q24H) PO SCH (08:21)
[2022-11-21] MEDS: ferrous sulfate 325mg tablet PO SCH ×3 (08:21→21:09)
[2022-11-21] MEDS: pantoprazole 40mg Tablet.DR PO SCH (08:21)
[2022-11-21] MEDS: docusate sod 100mg capsule PO SCH ×2 (08:21→20:00)
[2022-11-21] MEDS: pregabalin 75mg capsule PO SCH ×2 (08:21→21:09)
[2022-11-21] MEDS: furosemide 20MG tablet PO SCH (08:23)
[2022-11-21] MEDS: metoprolol tartrate 12.5mg (1/2 tablet) PO SCH ×2 (08:24→20:00)
[2022-11-21] MEDS: lisinopril 10 MG tablet PO SCH (08:24)
[2022-11-21] MEDS ORDERED: FLU VACC QS2022-23(6MOS UP)/PF 60 MCG/0.5 ML SYRINGE IMVAC ONE (10:00)
--- NOTE | 2022-11-21 10:30 | NUR ---
PAGER ID: [phone] MESSAGE: [id number], Felipe Jackson. Pt says it thomas when she urinates. I have a specimen if you would like me to order a UA? Pilar [facility] [id number]
--- NOTE | 2022-11-21 11:01 | NUR ---
DM Consult: Pt hx T2DM A1C 8.4%; pt seen by YOSEF recent prior admit 10/19/22 for DM ed w/ YOSEF contact information provided. Addendum: 11/21/22 at [address] Amended: Links added.
[2022-11-21 11:32] LABS: CLARITY,URINE CLEAR (Clear); COLOR,URINE YELLOW (Yellow); GLUCOSE, URINE 100 mg/dl (Neg); KETONES,URINE NEGATIVE (Neg); LEUKOCYTE ESTERASE ,URINE NEGATIVE (Neg); NITRITES, URINE NEGATIVE (Neg); OCCULT BLOOD,URINE NEGATIVE (Neg); PH,URINE 5.5 (4.8-8.0); PROTEIN,URINE NEGATIVE (Neg); UROBILINOGEN,URINE 0.2 E.U/dL (0.2-1.0)
[2022-11-21 11:33] LABS: UA COLLECTION TYPE NON-SPECIFIED
[2022-11-21] MEDS: heparin, porcine 5000 units/ml vial SQ SCH ×2 (12:52→21:06)
[2022-11-21] MEDS: insulin Lispro (HumaLOG) vial - multi-dose SQ SCH ×3 (14:15→22:25)
--- NOTE | 2022-11-21 15:16 | NUR ---
PAGER ID: [phone] MESSAGE: [id number], Felipe Jackson. Pt has a very strong cough. Can I get some Teslon pearls ordered for her? Pilar [phone].
[2022-11-21] MEDS: benzonatate 100mg capsule PO PRN (15:41)
[2022-11-21] MEDS: albuterol 2.5 MG/3 ML nebule NEB PRN ×2 (17:17→22:38)
[2022-11-21] MEDS: ALPRAZolam 0.5mg tablet PO PRN ×2 (17:19→21:23)
[2022-11-21] MEDS ORDERED: furosemide 40mg/4ml inj IV ONE (18:00)
--- NOTE | 2022-11-21 18:59 | NUR ---
Problems reprioritized. Patient report given, questions answered & plan of care reviewed with Hwaa CHAVARRIA, patient stable at transfer of care.
[2022-11-21] MEDS: ipratropium/albuterol 3ml nebule NEB PRN (19:51)
[2022-11-22] MEDS: nystatin 15 GM ointment TP SCH ×4 (00:18→20:38)
[2022-11-22] MEDS: piperacillin/tazo 4.5gm/100ml 100 ML IV SCH ×4 (00:24→23:25)
[2022-11-22 02:00] VITALS: BP 101/61
[2022-11-22] MEDS: albuterol 2.5 MG/3 ML nebule NEB PRN ×2 (02:37→07:37)
[2022-11-22 06:00] VITALS: BP 107/56
[2022-11-22 06:11] LABS: BASOPHILS % (AUTO) 0 % (0-1); EOSINOPHILS % (AUTO) 0 % (0-6); LYMPHOCYTES # (AUTO) 0.3 X10'3 (1.1-4.8); LYMPHOCYTES % (AUTO) 2.3 % (21-51); MEAN PLATELET VOLUME 7.6 FL (7.4-10.4); MONOCYTES # (AUTO) 0.7 X10'3 (0-0.9); MONOCYTES % (AUTO) 5.7 % (2-12); NEUTROPHILS # (AUTO) 10.7 X10'3 (1.8-7.7); PLATELET COUNT 300 X10'3 (140-440); WHITE BLOOD COUNT 11.6 X10'3 (4.5-11.0)
[2022-11-22 06:18] LABS: ALANINE AMINOTRANSFERASE 101 U/L (12-78); ALBUMIN 3.1 G/DL (3.4-5.0); ALBUMIN/GLOBULIN RATIO 0.9 (1.1-1.5); ALKALINE PHOSPHATASE 162 IU/L (46-116); ANION GAP 3 (8-16); ASPARTATE AMINO TRANSFERASE 70 U/L (10-37); BILIRUBIN,TOTAL 0.7 MG/DL (0.1-1.0); BLOOD UREA NITROGEN 44 MG/DL (7-18); BUN/CREATININE RATIO 29.9 (6.6-38.0); CALCIUM 8.5 MG/DL (8.5-10.1); CHLORIDE 100 MMOL/L (99-107); CREATININE 1.47 MG/DL (0.40-0.90); GLUCOSE 242 MG/DL (70-104); MAGNESIUM 2.7 MG/DL (1.5-2.4); POTASSIUM 4.8 MMOL/L (3.5-5.1); SODIUM 135 MMOL/L (135-145); TOTAL CARBON DIOXIDE 32.2 MMOL/L (24-32); TOTAL PROTEIN 6.7 G/DL (6.4-8.2); eGFR 35 ML/MIN
--- NOTE | 2022-11-22 06:29 | NUR ---
REPORT GIVEN TO NATA CHAVARRIA
[2022-11-22] MEDS: ipratropium/albuterol 3ml nebule NEB PRN ×2 (07:37→11:06)
[2022-11-22] MEDS: benzonatate 100mg capsule PO PRN ×2 (07:38→15:32)
[2022-11-22] MEDS: ferrous sulfate 325mg tablet PO SCH ×3 (07:38→20:38)
[2022-11-22] MEDS: lisinopril 10 MG tablet PO SCH (07:39)
[2022-11-22] MEDS: pregabalin 75mg capsule PO SCH ×2 (07:39→19:09)
[2022-11-22] MEDS: methylPREDNISolone sod succ/PF 40mg inj. IV SCH ×3 (07:40→20:38)
[2022-11-22] MEDS: levoTHYROXINE 175mcg tablet PO SCH (07:40)
[2022-11-22] MEDS: aspirin 81mg, enteric-coated 1 TAB TABLET.DR PO SCH (07:40)
[2022-11-22] MEDS: pantoprazole 40mg Tablet.DR PO SCH (07:40)
[2022-11-22] MEDS: metoprolol tartrate 12.5mg (1/2 tablet) PO SCH ×2 (07:40→19:09)
[2022-11-22] MEDS: venlafaxine XR 37.5mg cap (Q24H) PO SCH (07:40)
[2022-11-22] MEDS: furosemide 40mg/4ml inj IV SCH (07:41)
[2022-11-22] MEDS: heparin, porcine 5000 units/ml vial SQ SCH ×2 (07:41→19:09)
[2022-11-22 07:52] LABS: HEMATOCRIT 35.5 % (35.0-45.0); HEMOGLOBIN 11.4 g/dl (12.0-16.0); MEAN CORPUSCULAR HEMOGLOBIN 23.7 PG (27.0-31.0); MEAN CORPUSCULAR HGB CONC 32.1 g/dL (33.0-36.5); MEAN CORPUSCULAR VOLUME 73.8 FL (78-98); RED BLOOD COUNT 4.81 X10'6 (4.20-5.60); RED CELL DISTRIBUTION WIDTH 19.8 % (11.5-14.5)
[2022-11-22] MEDS: docusate sod 100mg capsule PO SCH ×2 (08:00→19:08)
[2022-11-22] MEDS: K and/or MAG REPLACEMENT MC SCH ×2 (08:00→19:02)
[2022-11-22] MEDS: insulin Lispro (HumaLOG) vial - multi-dose SQ SCH ×4 (08:42→21:07)
[2022-11-22 10:00] VITALS: BP 98/60
[2022-11-22 14:00] VITALS: BP 102/57
[2022-11-22 16:11] LABS: TOTAL CELLS COUNTED 100
[2022-11-22 16:12] LABS: ANISOCYTOSIS 3+; ELLIPTOCYTES 1+; MICROCYTOSIS 1+; PLATELET ESTIMATE NORMAL; SCHISTOCYTES FEW
[2022-11-22 16:13] LABS: BURR CELLS 1+; HYPOCHROMASIA 1+; LARGE PLATELETS FEW
[2022-11-22 18:00] VITALS: BP 116/63
[2022-11-22] MEDS: ALPRAZolam 0.5mg tablet PO PRN (19:09)
[2022-11-22] MEDS ORDERED: insulin glargine (Lantus) pen - multi-dose SQ SCH (21:00)
--- NOTE | 2022-11-22 22:17 | NUR ---
PLEASE REEVALUATE-PATIENT C/O CONDENSATION, BEING "WET", THX U [phone]
[2022-11-22] MEDS ORDERED: ALPRAZolam 0.5mg tablet PO ONE (22:40)
[2022-11-22] MEDS ORDERED: ALPRAZolam 0.25mg tablet PO ONE (22:40)
[2022-11-22 23:00] VITALS: BP 109/76
[2022-11-23 02:55] VITALS: BP 103/67
[2022-11-23] MEDS: ipratropium/albuterol 3ml nebule NEB PRN ×2 (03:58→10:51)
[2022-11-23 05:54] LABS: BASOPHILS % (AUTO) 0.1 % (0-1); EOSINOPHILS % (AUTO) 0 % (0-6); LYMPHOCYTES # (AUTO) 0.4 X10'3 (1.1-4.8); LYMPHOCYTES % (AUTO) 4.5 % (21-51); MEAN PLATELET VOLUME 7.5 FL (7.4-10.4); NEUTROPHILS # (AUTO) 8.2 X10'3 (1.8-7.7); NEUTROPHILS % (AUTO) 85.4 % (42-75); PLATELET COUNT 284 X10'3 (140-440); WHITE BLOOD COUNT 9.6 X10'3 (4.5-11.0)
[2022-11-23 06:00] VITALS: BP 109/71
[2022-11-23 06:12] LABS: ALANINE AMINOTRANSFERASE 101 U/L (12-78); ALBUMIN 3.1 G/DL (3.4-5.0); ALBUMIN/GLOBULIN RATIO 0.9 (1.1-1.5); ALKALINE PHOSPHATASE 144 IU/L (46-116); ANION GAP 2 (8-16); ASPARTATE AMINO TRANSFERASE 68 U/L (10-37); BILIRUBIN,TOTAL 0.6 MG/DL (0.1-1.0); BLOOD UREA NITROGEN 48 MG/DL (7-18); BUN/CREATININE RATIO 36.4 (6.6-38.0); CALCIUM 8.8 MG/DL (8.5-10.1); CHLORIDE 102 MMOL/L (99-107); CREATININE 1.32 MG/DL (0.40-0.90); GLUCOSE 105 MG/DL (70-104); MAGNESIUM 2.6 MG/DL (1.5-2.4); POTASSIUM 4.4 MMOL/L (3.5-5.1); SODIUM 139 MMOL/L (135-145); TOTAL CARBON DIOXIDE 34.7 MMOL/L (24-32); TOTAL PROTEIN 6.5 G/DL (6.4-8.2); eGFR 39 ML/MIN
[2022-11-23 06:43] LABS: HEMOGLOBIN 11.3 g/dl (12.0-16.0); RED BLOOD COUNT 4.74 X10'6 (4.20-5.60)
[2022-11-23 06:44] LABS: HEMATOCRIT 35.2 % (35.0-45.0); MEAN CORPUSCULAR HEMOGLOBIN 23.9 PG (27.0-31.0); MEAN CORPUSCULAR HGB CONC 32.2 g/dL (33.0-36.5); MEAN CORPUSCULAR VOLUME 74.3 FL (78-98); RED CELL DISTRIBUTION WIDTH 20.2 % (11.5-14.5)
[2022-11-23] MEDS: benzonatate 100mg capsule PO PRN (07:20)
[2022-11-23] MEDS: levoTHYROXINE 175mcg tablet PO SCH (07:20)
[2022-11-23] MEDS: metoprolol tartrate 12.5mg (1/2 tablet) PO SCH ×2 (07:20→19:13)
[2022-11-23] MEDS: pregabalin 75mg capsule PO SCH ×2 (07:20→19:13)
[2022-11-23] MEDS: aspirin 81mg, enteric-coated 1 TAB TABLET.DR PO SCH (07:20)
[2022-11-23] MEDS: furosemide 40mg/4ml inj IV SCH (07:21)
[2022-11-23] MEDS: methylPREDNISolone sod succ/PF 40mg inj. IV SCH ×3 (07:21→20:29)
[2022-11-23] MEDS: piperacillin/tazo 4.5gm/100ml 100 ML IV SCH ×3 (07:21→23:35)
[2022-11-23] MEDS: pantoprazole 40mg Tablet.DR PO SCH (07:21)
[2022-11-23] MEDS: venlafaxine XR 37.5mg cap (Q24H) PO SCH (07:21)
[2022-11-23] MEDS: ferrous sulfate 325mg tablet PO SCH ×3 (07:21→20:29)
[2022-11-23] MEDS: heparin, porcine 5000 units/ml vial SQ SCH ×2 (07:22→19:14)
[2022-11-23 07:24] LABS: ANISOCYTOSIS 3+; MICROCYTOSIS 1+; PLATELET ESTIMATE NORMAL; TOTAL CELLS COUNTED 100
[2022-11-23] MEDS: nystatin 15 GM ointment TP SCH ×3 (07:24→20:39)
[2022-11-23 07:25] LABS: HYPOCHROMASIA 1+
[2022-11-23] MEDS: albuterol 2.5 MG/3 ML nebule NEB PRN (07:54)
[2022-11-23] MEDS: K and/or MAG REPLACEMENT MC SCH ×2 (08:00→19:11)
[2022-11-23] MEDS: docusate sod 100mg capsule PO SCH ×2 (08:00→19:13)
[2022-11-23] MEDS: lisinopril 10 MG tablet PO SCH (08:00)
[2022-11-23 10:00] VITALS: BP 103/65
[2022-11-23 14:00] VITALS: BP 118/77
[2022-11-23] MEDS: ALPRAZolam 0.5mg tablet PO PRN (15:39)
[2022-11-23 18:00] VITALS: BP 101/69
[2022-11-23] MEDS: insulin Lispro (HumaLOG) vial - multi-dose SQ SCH ×2 (19:18→20:43)
[2022-11-23] MEDS ORDERED: insulin glargine (Lantus) pen - multi-dose SQ SCH ×2 (21:00)
[2022-11-23 22:39] VITALS: BP 109/61
[2022-11-24 01:56] VITALS: BP 101/65
[2022-11-24 06:30] LABS: ALANINE AMINOTRANSFERASE 104 U/L (12-78); ALBUMIN 3.2 G/DL (3.4-5.0); ALBUMIN/GLOBULIN RATIO 0.8 (1.1-1.5); ALKALINE PHOSPHATASE 137 IU/L (46-116); ANION GAP 1 (8-16); ASPARTATE AMINO TRANSFERASE 52 U/L (10-37); BILIRUBIN,TOTAL 0.6 MG/DL (0.1-1.0); BLOOD UREA NITROGEN 45 MG/DL (7-18); BUN/CREATININE RATIO 33.6 (6.6-38.0); CALCIUM 9.2 MG/DL (8.5-10.1); CHLORIDE 99 MMOL/L (99-107); CREATININE 1.34 MG/DL (0.40-0.90); GLUCOSE 179 MG/DL (70-104); SODIUM 139 MMOL/L (135-145); eGFR 39 ML/MIN
[2022-11-24 06:32] LABS: POTASSIUM 5.3 MMOL/L (3.5-5.1)
[2022-11-24 06:43] LABS: BASOPHILS % (AUTO) 0 % (0-1); EOSINOPHILS % (AUTO) 0 % (0-6); HEMATOCRIT 41.6 % (35.0-45.0); HEMOGLOBIN 12.2 g/dl (12.0-16.0); LYMPHOCYTES # (AUTO) 0.5 X10'3 (1.1-4.8); LYMPHOCYTES % (AUTO) 5.8 % (21-51); MEAN CORPUSCULAR HEMOGLOBIN 22.6 PG (27.0-31.0); MEAN CORPUSCULAR HGB CONC 29.3 g/dL (33.0-36.5); MEAN CORPUSCULAR VOLUME 77.1 FL (78-98); MEAN PLATELET VOLUME 7.9 FL (7.4-10.4); MONOCYTES % (AUTO) 11.4 % (2-12); NEUTROPHILS % (AUTO) 82.8 % (42-75); PLATELET COUNT 321 X10'3 (140-440); RED CELL DISTRIBUTION WIDTH 20.2 % (11.5-14.5); WHITE BLOOD COUNT 8.5 X10'3 (4.5-11.0)
[2022-11-24 07:00] VITALS: BP 130/73
[2022-11-24] MEDS: levoTHYROXINE 175mcg tablet PO SCH (07:59)
[2022-11-24] MEDS: venlafaxine XR 37.5mg cap (Q24H) PO SCH (07:59)
[2022-11-24] MEDS: pregabalin 75mg capsule PO SCH (07:59)
[2022-11-24] MEDS: aspirin 81mg, enteric-coated 1 TAB TABLET.DR PO SCH (07:59)
[2022-11-24] MEDS: docusate sod 100mg capsule PO SCH (08:00)
[2022-11-24] MEDS: pantoprazole 40mg Tablet.DR PO SCH (08:00)
[2022-11-24] MEDS: ferrous sulfate 325mg tablet PO SCH ×2 (08:00→14:01)
[2022-11-24] MEDS: metoprolol tartrate 12.5mg (1/2 tablet) PO SCH (08:00)
[2022-11-24] MEDS: lisinopril 10 MG tablet PO SCH (08:00)
[2022-11-24] MEDS: piperacillin/tazo 4.5gm/100ml 100 ML IV SCH (08:01)
[2022-11-24] MEDS: heparin, porcine 5000 units/ml vial SQ SCH (08:01)
[2022-11-24] MEDS: methylPREDNISolone sod succ/PF 40mg inj. IV SCH ×2 (08:01→14:01)
[2022-11-24] MEDS: furosemide 40mg/4ml inj IV SCH (08:01)
[2022-11-24] MEDS: insulin Lispro (HumaLOG) vial - multi-dose SQ SCH ×2 (08:22→14:07)
[2022-11-24] MEDS: nystatin 15 GM ointment TP SCH ×2 (08:23→13:57)
[2022-11-24] MEDS: K and/or MAG REPLACEMENT MC SCH (08:25)
[2022-11-24] MEDS: ipratropium/albuterol 3ml nebule NEB PRN ×2 (08:59→12:04)
[2022-11-24 11:00] VITALS: BP 105/63
[2022-11-24] MEDS: ALPRAZolam 0.5mg tablet PO PRN (14:01)
[2022-11-24] MEDS: albuterol 2.5 MG/3 ML nebule NEB PRN (14:38)
[2022-11-24] MEDS: benzonatate 100mg capsule PO PRN (14:40)
--- NOTE | 2022-11-24 15:58 | NUR ---
patient transferred to [facility] in stable condition. adalberto sent with pt. report called to [facility]
== END 2022-11-24 16:12 | DRG 871 ==
LOC: ER 21:44 → ED HOLD 11-20 01:25 → PCU 3S 11-20 14:48
PROVIDERS: ADMIT Internal Medicine; ATTEND Family Medicine
PROC: 5A09357 Assistance with Respiratory Ventilation, Less than 24 Consecutive Hours, Continuous Positive Airway Pressure (ICD-10-PCS; 2022-11-19)
PROC: 4A02XM4 Measurement of Cardiac Total Activity, External Approach (ICD-10-PCS; principal; 2022-11-21)
PROC: 3E033HZ Introduction of Radioactive Substance into Peripheral Vein, Percutaneous Approach (ICD-10-PCS; 2022-11-21)
PROC: 5A09357 Assistance with Respiratory Ventilation, Less than 24 Consecutive Hours, Continuous Positive Airway Pressure (ICD-10-PCS; 2022-11-21)
PROC: 3E02340 Introduction of Influenza Vaccine into Muscle, Percutaneous Approach (ICD-10-PCS; 2022-11-21)
PROC: 5A09357 Assistance with Respiratory Ventilation, Less than 24 Consecutive Hours, Continuous Positive Airway Pressure (ICD-10-PCS; 2022-11-22)
PROC: 5A0935A Assistance with Respiratory Ventilation, Less than 24 Consecutive Hours, High Flow/Velocity Cannula (ICD-10-PCS; 2022-11-22)
PROC: 5A09357 Assistance with Respiratory Ventilation, Less than 24 Consecutive Hours, Continuous Positive Airway Pressure (ICD-10-PCS; 2022-11-23)
PROC: 5A0935A Assistance with Respiratory Ventilation, Less than 24 Consecutive Hours, High Flow/Velocity Cannula (ICD-10-PCS; 2022-11-23)
PROC: 5A0935A Assistance with Respiratory Ventilation, Less than 24 Consecutive Hours, High Flow/Velocity Cannula (ICD-10-PCS; 2022-11-24)
DX: A41.9 Sepsis, unspecified organism (principal); I21.A1 Myocardial infarction type 2; I50.33 Acute on chronic diastolic (congestive) heart failure; J18.9 Pneumonia, unspecified organism; J96.21 Acute and chronic respiratory failure with hypoxia; I13.0 Hypertensive heart and chronic kidney disease with heart failure and stage 1 through stage 4 chronic kidney disease, or unspecified chronic kidney disease; J44.0 Chronic obstructive pulmonary disease with (acute) lower respiratory infection; J44.1 Chronic obstructive pulmonary disease with (acute) exacerbation; E03.9 Hypothyroidism, unspecified; E11.22 Type 2 diabetes mellitus with diabetic chronic kidney disease; E11.40 Type 2 diabetes mellitus with diabetic neuropathy, unspecified; E66.01 Morbid (severe) obesity due to excess calories; Z20.822 Contact with and (suspected) exposure to COVID-19; E78.00 Pure hypercholesterolemia, unspecified; G89.29 Other chronic pain; K58.9 Irritable bowel syndrome, unspecified; M54.9 Dorsalgia, unspecified; R74.01 Elevation of levels of liver transaminase levels; K80.20 Calculus of gallbladder without cholecystitis without obstruction; F41.1 Generalized anxiety disorder; R00.0 Tachycardia, unspecified; F32.A Depression, unspecified; Z60.2 Problems related to living alone; I27.20 Pulmonary hypertension, unspecified; G47.33 Obstructive sleep apnea (adult) (pediatric); I25.10 Atherosclerotic heart disease of native coronary artery without angina pectoris; M79.7 Fibromyalgia; N18.9 Chronic kidney disease, unspecified; I25.2 Old myocardial infarction; Z79.82 Long term (current) use of aspirin; Z82.49 Family history of ischemic heart disease and other diseases of the circulatory system; Z90.721 Acquired absence of ovaries, unilateral; Z95.5 Presence of coronary angioplasty implant and graft; Z99.81 Dependence on supplemental oxygen; Z23 Encounter for immunization; Z88.8 Allergy status to other drugs, medicaments and biological substances; Z79.899 Other long term (current) drug therapy; Z68.39 Body mass index [BMI] 39.0-39.9, adult
CPT/HCPCS: 36415; 36600; 71045; 76700; 78452; 80053; 80061; 81003; 82803; 82948; 83036; 83605; 83735; 83880; 84132; 84145; 84484; 85007; 85008; 85018; 85025; 85610; 87040; 87502; 87503; 87635; 90686; 93005; 93017; 94640; 94660; 94760; 99285; A4615; A7015; A9500; C9803; G0378; J0456; J1644; J1815; J1940; J2060; J2405; J2543; J2785; J2920; J2930; J7040

== ENCOUNTER 2025-07-28 13:10 | Outpatient (CLI) | payer MEDICARE, OTHER ==
[~2025-07-28 13:10] MED LIST changes: +ASPI-611 PO; +FERR325T29 PO; -FERR325T32 PO; +IPRA3AMP31 IH; -IPRA3AMP9 NEB; -LEVO175C2 PO; +LEVO175C3 PO; -METF750T46 PO; +NYST15CR TOP; -NYST15OI14 TP; -VENL37.55 PO; +VENL37.58 PO; -ZOV200C PO; +[UNRECOGNIZED DRUG - CODE] PO
--- NOTE | 2025-07-28 15:31 | RADIOLOGY REPORT ---
PROCEDURE: MR MRI LUMBAR SPINE Indication: SCIATICA, RIGHT SIDE COMPARISON: None TECHNIQUE: Multiplanar multisequence images of the the lumbar spine are obtained. FINDINGS: For the purpose of this examination, there are 5 lumbar vertebral body types counting from the lumbosacral junction. Lumbar heights maintained. Severe multilevel disc space narrowing. 4 mm anterolisthesis of L4 upon L5.3 mm anterolisthesis L3 upon L4. Degenerative edematous endplate changes at T11 and T12. L1 hemangioma measuring 2.3 cm. L4 hemangioma measuring 1.5 cm. T12-L1: 3 mm disc protrusion. Moderate to severe facet and flavum hypertrophy. Thecal sac measures 10 mm AP. No spinal canal stenosis. Severe bilateral neural foraminal stenosis. L1-2: 5 mm disc protrusion. Severe facet and flavum hypertrophy. Thecal sac measures 9 mm AP. Mild spinal canal stenosis. Severe bilateral neural foraminal stenosis. L2-3: 3 mm disc osteophyte complex. Severe facet and flavum hypertrophy. Thecal sac measures 7 mm AP. Moderate spinal canal stenosis. Severe bilateral neural foraminal stenosis. L3-4: 2 mm disc protrusion. Severe facet and flavum hypertrophy. Thecal sac measures 6 mm AP. Moderate spinal canal stenosis. Severe bilateral neural foraminal stenosis. L4-5: 4 mm disc protrusion. Severe facet and flavum hypertrophy. Thecal sac measures 5 mm AP. Severe spinal canal stenosis. Severe bilateral neural foraminal stenosis. L5-S1: 3 mm disc protrusion. Moderate facet and flavum hypertrophy. Thecal sac measures 10 mm AP. No spinal canal stenosis. Severe bilateral neural foraminal stenosis. IMPRESSION: Severe lumbar degenerative disc disease. Severe spinal canal stenosis at L4-5. Moderate spinal canal stenosis L3-4, L2-3. Mild spinal canal stenosis L1-2. Multilevel moderate to severe neural foraminal stenosis described
== END 2025-07-28 23:59 | disposition home or self-care (01) ==
LOC: MRI02 13:10
PROVIDERS: ATTEND Nurse Practitioner
DX: M51.17 Intervertebral disc disorders with radiculopathy, lumbosacral region (principal); M48.07 Spinal stenosis, lumbosacral region; M47.27 Other spondylosis with radiculopathy, lumbosacral region
CPT/HCPCS: 72148; A5200

== ENCOUNTER 2025-09-18 14:22 | Emergency (ER) | payer MEDICARE, OTHER ==
[~2025-09-18] VITALS: Ht 167.6 cm; Wt 104.5 kg
[2025-09-18 14:30] VITALS: BP 145/90; PULSE 89; RESP 18; O2SAT 98
--- NOTE | 2025-09-18 14:53 | Physician Documentation ---
History of Present Illness ~ Chief Complaint: Vaginal pain Stated Complaint: KIDNEY PAIN Time Seen by MD: 18:45 HPI Patient is a very pleasant 79-year-old female that presents to the emergency department for evaluation of left-sided flank pain times several days. She reports she was seen at urgent care and referred to the emergency department for concern for renal calculi and/or kidney infection. Subsequently the patient reports that she has tissue hanging from her vagina I am that she is able to push back in on occasion this has been ongoing for some time. Patient also reports bright red red blood from her vagina periodically. Patient reports bur katia with urination and some pain in her vagina at this time. Patient denies fever chills nausea vomiting diarrhea. Patient denies any overt bleeding or heavy bleeding at this time. Patient is a he appears comfortable and without distress in the triage room. Medication Reconciliation Allergies: Coded Allergies: Cephalexin Monohydrate (Verified Allergy, Unknown, 11/02/22) celecoxib (Verified Allergy, Unknown, 11/02/22) Scheduled Aspirin (Aspir 81), 1 TAB PO DAILY, (Reported) Atorvastatin Calcium* (Lipitor*), 1 TAB PO DAILY, (Reported) Ferrous Sulfate (Ferrous Sulfate), 325 MG PO TID, (Reported) Furosemide (Furosemide), 20 MG PO BID Levothyroxine Sodium (Levothyroxine), 1 CAP PO DAILY, (Reported) Lisinopril (Lisinopril), 1 TAB PO DAILY, (Reported) Nystatin (Nystatin), 1 APPLIC TOP TID, (Reported) Pantoprazole Sodium (Pantoprazole Sodium), 40 MG PO DAILY, (Reported) Potassium Chloride 8 MEQ* (Slow-K 8 Meq*), 3 TAB PO QAM, (Reported) Pregabalin (Lyrica), 1 CAP PO Q12H, (Reported) Venlafaxine Hcl (Effexor Xr), 1 CAP PO DAILY, (Reported) Scheduled PRN Acyclovir (Acyclovir), 400 MG PO TID PRN for SIGN OF OUTBREAK, (Reported) Alprazolam (Xanax), 1 TAB PO Q12H PRN for anxiety, (Reported) Miscellaneous Medications Ipratropium/Albuterol Sulfate (Duoneb 2.5-0.5 Mg/3 Ml Soln), 3 ML IH, (Reported) Past Medical History Past Medical History: *CARDIOVASCULAR*, Atrial Fibrillation, Coronary Artery Disease, Congestive Heart Failure, High Cholesterol, Hypertension, Myocardial Infarction, COPD, Diabetes, Hypothyroidism, Chronic Back Pain, Anxiety Past Surgical History: angioplasty Other Past Surgical History: x4 cardiac stents Alcohol Use: None Drug Use: none Lives with: Alone Lives In: Home Review of Systems ROS As stated above in the HPI, otherwise all systems are reviewed and negative. Physical Exam Vital Signs: Temperature: 98.3, Source: Oral, Heart Rate: 89, Respiratory Rate: 18, BP: 145/90, Pulse Oximetry: 98, Weight: 104.550 Physical Exam VITALS: Reviewed and as above. GENERAL: Alert, no apparent distress. HEENT: Normocephalic, atraumatic, PERRL, EOMI, dry mucosa, no erythema RESPIRATORY: Lungs clear, normal breath sounds, no respiratory distress. CHEST: No accessory muscle use, no retractions CV: Regular rate, rhythm, no edema, no murmur, No: JVD GI: Soft, non-tender, bowels sounds present, no rebound, guarding, or rigidity BACK: Positive CVA tenderness, or swelling MUSCULOSKELETAL No deformities, no edema SKIN: Warm and dry, no rash NEURO: Oriented x4, No motor or sensory deficit PSYCH: Normal mood and affect, no agitation Progress Results/Orders Results/Orders Orders - LAURA BLAIRP Cult Urine + [place] [address] (09/18/25 16:26) Completed Orders - LAURA BLAIRP Cbc/Diff (09/18/25 14:50) CMP (09/18/25 14:50) Ua W/Microscopic, Cult If Ind (09/18/25 16:04) Vital Signs 09/18/25 14:30 Temp 98.3 Pulse 89 Resp 18 B/P (MAP) 145/90 Pulse Ox 98 Laboratory Tests Test 09/18/25 15:11 09/18/25 16:04 White Blood Count 8.7 Red Blood Count 6.02 H Hemoglobin 15.7 Hematocrit 48.5 H Mean Corpuscular Volume 80.6 Mean Corpuscular Hemoglobin 26.2 L Mean Corpuscular Hemoglobin Concent 32.4 L Red Cell Distribution Width 18.2 H Platelet Count 271 Mean Platelet Volume 7.1 L Neutrophils (%) (Auto) 73.1 Lymphocytes (%) (Auto) 12.2 L Monocytes (%) (Auto) 10.9 Eosinophils (%) (Auto) 3.3 Basophils (%) (Auto) 0.5 Neutrophils # (Auto) 6.4 Lymphocytes # (Auto) 1.1 Monocytes # (Auto) 0.9 Eosinophils # (Auto) 0.3 Basophils # (Auto) 0.0 CBC Comment Sodium Level 136 Potassium Level 3.9 Chloride Level 98 L Carbon Dioxide Level 32.8 H Anion Gap 5 L Blood Urea Nitrogen 21 H Creatinine 1.05 H Estimated GFR/1.73 m2 51 BUN/Creatinine Ratio 20.0 Glucose Level 103 Calcium Level 10.0 Total Bilirubin 0.4 Aspartate Amino Transf (AST/SGOT) 17 Alanine Aminotransferase (ALT/SGPT) 17 Alkaline Phosphatase 102 Total Protein 7.8 Albumin 3.4 Globulin 4.4 H Albumin/Globulin Ratio 0.8 L Chemistry Comments Urine Specimen Description Cln catch midstream Urine Color Yellow Urine Clarity Clear Urine pH 6.0 Urine Specific [place] <=1.005 Urine Protein Negative Urine Glucose (UA) 250 H Urine Ketones Negative Urine Occult Blood Large H Urine Nitrite Positive H Urine Bilirubin Negative Urine Urobilinogen 0.2 Urine Leukocyte Esterase Moderate H Urine RBC 10-20 Urine WBC 10-20 H Urine Squamous Epithelial Cells Moderate Urine Transitional Epithelial Cells Few Urine Bacteria 4+ Urine Hyaline Casts 0-3 Urine Starch Few Urine Mucus Few Urine Culture Indicated Indicated Volume Urine Centrifuged 10 ml Urine Comment Microbiology Date/Time Source Procedure Growth Status 09/18/25 16:26 Urine Clean Catch Midstream Urine Culture - Preliminary Culture received. Resulted Medical Decision Making Additional information obtaine: other Findings MEDICAL DECISION MAKING - DISCHARGE Chief Complaint: Left-sided flank pain Diagnosis: Acute pyelonephritis, pelvic organ prolapse Complexity of Care: This is a 79-year-old female presenting with left-sided flank pain and laboratory evidence of urinary tract infection, consistent with probable acute pyelonephritis. The diagnosis was established based on the presence of costovertebral angle pain and positive urinalysis with pyuria, meeting clinical diagnostic criteria for symptomatic UTI in older women. Physical examination also revealed vaginal tissue prolapse visible on general examination but not protruding beyond the vaginal introitus at this time. Risk Assessment: The patient was assessed for severity of illness and suitability for outpatient management. She demonstrated mild to moderate illness severity without signs of sepsis, hemodynamic instability, or critical modifying factors that would necessitate hospital admission. She is able to tolerate oral medications and has stable psychosocial circumstances, making her appropriate for discharge with oral antibiotic therapy. Diagnostic Evaluation: Urinalysis demonstrated pyuria and bacteriuria. Urine culture was obtained to guide antibiotic selection and assess for antimicrobial resistance patterns. Physical examination included assessment for costovertebral angle tenderness, which was present on the left side, and pelvic examination, which revealed pelvic organ prolapse without protrusion beyond the hymen. Treatment Plan: The patient was initiated on empiric antibiotic therapy appropriate for acute pyelonephritis with planned 14-day course. Antibiotic selection considered local resistance patterns and the patient's ability to tolerate oral therapy. The patient was counseled on the importance of completing the full antibiotic course and maintaining adequate hydration. Disposition Rationale: Discharge to home is appropriate given the patient's clinical stability, ability to take oral medications, absence of severe sepsis or critical comorbidities, and reliable follow-up plan. The patient does not require intravenous therapy or hospital-level monitoring at this time. Follow-up Arrangements: Gynecology follow-up arranged for evaluation and management of pelvic organ prolapse. The prolapse is currently not causing urinary retention or significant functional impairment but warrants specialist assessment to determine if treatment is indicated. Primary care follow-up within 48-72 hours to assess clinical response to antibiotic therapy Urine culture results will be reviewed and antibiotic therapy adjusted if needed based on susceptibility testing Patient instructed to return immediately if symptoms worsen, fever persists beyond 48-72 hours of appropriate therapy, or new symptoms develop Patient Education: The patient was counseled regarding: Signs and symptoms requiring immediate return to the emergency department (high fever, severe pain, inability to tolerate oral intake, altered mental status) Importance of medication compliance and completing the full antibiotic course Adequate fluid intake Pelvic organ prolapse and the importance of gynecologic follow-up Risk Factors Identified: Age-related risk factors for recurrent UTI were noted, including potential hypoestrogenism and pelvic organ prolapse, which may contribute to future urinary tract infections. These will be addressed in outpatient follow-up. Clinical Response Expected: Most patients with acute pyelonephritis respond to appropriate antibiotic therapy within 48-72 hours. Failure to improve warrants repeat evaluation, imaging studies, and consideration of alternative diagnoses or complications such as obstruction or abscess formation. Urinary Diff Dx:Considerations: Include: AAA, , Aortic dissection, Appendicitis, Bowel obstruction, Cholelithiasis, Choleangitis, DJD, Ectopic , Hepatitis, HNP, Impaction, Intrauterine , Musculoskeletal pain, Ovarian torsion, Pancreatitis, PID, Post-Op complication, Pyelonephritis, Renal failure, Strain, Urinary Obstruction, Urolithiasis, Urinary retention, UTI, Vaginitis, Other Genital Diff Dx:Considerations: Include: -Complete, - Incomplete, -Inevitable, Ablortion-Missed, -Threatened, Abruptio placentae, Bartholin abscess, Bartholin cyst, Blood loss anemia, Constipation, Cervicitis, Dsymenorrhea, Ectopic , Foreign body, Hormonal, Hidradenitis suppurativa, Intrauterine , Menorrhagia, Menometrorrhagia, Menstrual bleeding, Myomatous uterus, Perianal abscess, Physiologic discharge, Pinworms, PID, Placenta previa, , Precipitous Hct, Trauma, UTI, Vaginitis(osis)-Atrophic, Vaginitis, Vaginitis(osis)-Bacterial, Vaginitis(osis)- Candidal, Vaginitis(osis)-Contact, Vaginitis(osis)-Herpes, Vaginitis(osis)- Trich., Other Departure Disposition: 01 HOME / SELF CARE / HOMELESS Impression: Primary Impression: Urinary tract infection Condition: Stable Discharge Instructions: Urinary Tract Infection, Adult, [id number] Additional Instructions: You have been diagnosed with a kidney infection (also called pyelonephritis). This is a bacterial infection that affects one or both of your kidneys. You also have tissue from your vagina that has moved out of place (called pelvic organ prolapse), which will need to be evaluated by a gynecology specialist. Your Medication You have been prescribed ciprofloxacin 500 mg. Take one tablet by mouth every 12 hours (twice a day) for 7 days. Important medication instructions: Take the full 7-day course of antibiotics even if you start feeling better after a few days. Stopping early can allow the infection to come back and may make the bacteria harder to treat in the future. You may take this medication with or without food. However, do not take it at the same time as dairy products (like milk or yogurt) or calcium-fortified juices, as these can interfere with how well the medicine works. Set an alarm or reminder to help you remember to take it at the same times each day (for example, 8 AM and 8 PM). If you miss a dose, take it as soon as you remember. If it's almost time for your next dose, skip the missed dose and continue with your regular schedule. Do not take two doses at once. Drink plenty of fluids while taking this medication. Avoid prolonged sun exposure and use sunscreen, as this medication can make your skin more sensitive to sunlight. What to Expect Most people with kidney infections start feeling better within 48 to 72 hours after starting antibiotics. However, you must complete the full 7-day course of treatment. You may experience: Gradual improvement in pain and burning with urination Decreased flank (side) pain Improved energy levels Warning Signs - Return to the Emergency Department Immediately If You Experience: Fever that continues or gets worse after 2-3 days of taking antibiotics Severe or worsening pain in your side or back Inability to keep down food or liquids Confusion or difficulty thinking clearly Heavy vaginal bleeding Severe diarrhea, especially if it contains blood Inability to urinate or severe decrease in urination Symptoms that get worse instead of better New or worsening joint pain, muscle pain, or tendon pain (especially in the ankle, shoulder, or hand) Numbness, tingling, or other changes in sensation Self-Care at Home Drink plenty of fluids - aim for 6-8 glasses of water per day unless told otherwise by your doctor Get plenty of rest to help your body fight the infection You may use [id number] pain relievers like acetaminophen (Tylenol) or ibuprofen (Advil, Motrin) for pain and discomfort as directed on the package Follow-Up Appointments Primary care doctor: Schedule an appointment within 2-3 days to make sure you are responding well to the antibiotic. Your doctor will review your urine culture results and may adjust your medication if needed. Gynecology specialist: You need to see a prison classification counselor for evaluation of the vaginal tissue prolapse. This appointment should be scheduled within the next few weeks. The prison classification counselor will examine you and discuss treatment options. Important Notes You do not need another urine test after treatment if your symptoms go away completely. If you develop another kidney infection in the future, you may need imaging tests (like an ultrasound or CT scan) to check for underlying problems. The pelvic organ prolapse may increase your risk of future urinary tract infections, which is another reason to follow up with gynecology. Questions or Concerns If you have questions about your medications or symptoms, contact your primary care doctor's office during business hours. For urgent concerns after hours or on weekends, call the on-call provider or return to the emergency department. Referrals: NO PRIMARY CARE PROVIDER (PCP) Prescriptions Ciprofloxacin HCl (Ciprofloxacin HCl) 500 Mg Tab 1 TAB PO Q12H for 10 Days, #20 TAB Prov: LAURA BLAIR 09/18/25 Education Educated: Patient Educated regarding: diagnosis, treatment, need for follow up Signature Scribe Signature: A Attestation: Scribed for Laura Blair by KRISSY Pagan . 09/18/25 21:28 LAURA BLAIR Sep 18, 2025 14:53
[2025-09-18 15:34] LABS: MEAN PLATELET VOLUME 7.1 FL (7.4-10.4); RED CELL DISTRIBUTION WIDTH 18.2 % (11.5-14.5)
[2025-09-18 15:59] LABS: CREATININE 1.05 MG/DL (0.40-0.90); TOTAL CARBON DIOXIDE 32.8 MMOL/L (24-32); eCRCL 42 ML/MIN; eGFR 51 ML/MIN
[2025-09-18 16:13] LABS: LEUKOCYTE ESTERASE ,URINE MODERATE (Neg); NITRITES, URINE POSITIVE (Neg); OCCULT BLOOD,URINE LARGE (Neg)
[2025-09-18 16:14] LABS: UA COLLECTION TYPE CLN CATCH MIDSTREAM
[2025-09-18 16:22] LABS: SQUAMOUS EPITHELIAL CELL,UR MODERATE /LPF (FEW)
[2025-09-18 16:23] LABS: MUCUS STRANDS FEW /LPF (Neg)
[2025-09-18 16:25] LABS: HYALINE CASTS 0-3 /LPF (NEGATIVE)
[2025-09-18 16:26] LABS: STARCH,URINE FEW /HPF (NEGATIVE)
[2025-09-18] MEDS ORDERED: CEFP100T7 PO (21:20)
[2025-09-18] MEDS ORDERED: CIPR-458 PO (21:27)
[2025-09-18] MEDS: ciprofloxacin 250mg tablet PO ONE (21:36)
[2025-09-18 21:40] VITALS: TEMP 98.3
== END 2025-09-18 22:07 | disposition home or self-care (01) ==
LOC: ER 14:22
DX: N39.0 Urinary tract infection, site not specified (principal); E11.9 Type 2 diabetes mellitus without complications; I11.0 Hypertensive heart disease with heart failure; I50.9 Heart failure, unspecified; E03.9 Hypothyroidism, unspecified; E78.00 Pure hypercholesterolemia, unspecified; G89.29 Other chronic pain; I25.10 Atherosclerotic heart disease of native coronary artery without angina pectoris; I25.2 Old myocardial infarction; I48.91 Unspecified atrial fibrillation; J44.9 Chronic obstructive pulmonary disease, unspecified; F41.9 Anxiety disorder, unspecified; Z95.5 Presence of coronary angioplasty implant and graft; Z88.1 Allergy status to other antibiotic agents; Z79.899 Other long term (current) drug therapy; Z60.2 Problems related to living alone
CPT/HCPCS: 36415; 80053; 81001; 85025; 87077; 87088; 87186; 99284